=== PATIENT | male | born 1965 | race Caucasian/White ===

== ENCOUNTER 2020-01-04 11:08 | Outpatient (CLI) | payer MEDICARE, SELFPAY ==
[2020-01-04 12:01] LABS: Basophils Absolute Auto 0.1 K/mm3 (0.0-0.1); Basophils Percent Auto 0.7 % (0.2-1.2); Eosinophils Absolute Auto 0.2 K/mm3 (0-0.3); Hematocrit 43.2 % (42.0-52.0); Hemoglobin 14.8 g/dL (14.0-18.0); Immature Granulocyte Absolute 0.03 K/mm3 (0.00-0.031); Immature Granulocyte Percent A 0.4 % (0-0.5); Lymphocytes Absolute Auto 2.26 K/mm3 (0.9-3.2); Lymphocytes Percent Auto 27.8 % (18.3-44.2); Mean Corpuscular HGB Conc 34.3 g/dl (32-36); Mean Corpuscular Hemoglobin 29.6 pg (26-34); Mean Corpuscular Volume 86.4 fl (80-100); Mean Platelet Volume 10.7 fl (7.4-10.4); Monocytes Absolute Auto 0.5 K/mm3 (0.1-0.6); Monocytes Percent Auto 5.8 % (2.6-8.5); Neutrophils Absolute Auto 5.1 K/mm3 (1.3-6.7); Neutrophils Percent Auto 62.3 % (45.5-73.1); Platelet Count Result 230 k/mm3 (150-375); Red Cell Distribution Width 12.4 % (11.5-14.5); White Blood Count 8.1 K/mm3 (4.5-10.0)
[2020-01-04 12:40] LABS: Alanine Aminotransferase 34 U/L (4-50); Albumin Level 4.3 g/dL (3.5-5.1); Alkaline Phosphatase 132 U/L (38-126); Aspartate Amino Transferase 26 U/L (17-59); Bilirubin,Total 0.5 mg/dL (0.2-1.3); Blood Urea Nitrogen 17 mg/dL (9-20); Calcium 9.2 mg/dL (8.4-10.2); Carbon Dioxide 22 mmol/L (22-30); Chloride 102 mmol/L (98-107); Cholesterol 188 mg/dL (0-200); Estimated Glomerular Filt Rate > 60; Glucose 355 mg/dL (75-110); HDL Direct 33 mg/dL; Potassium 4.5 mmol/L (3.4-5.0); Sodium 137 mmol/L (137-145); Triglycerides 215 mg/dL (<150)
[2020-01-04 12:51] LABS: LDL Cholesterol Direct 107 mg/dL
[2020-01-04 13:10] LABS: Prostate Specific Antigen < 0.1 ng/mL (< OR = 4.0); Thyroid Stimulating Hormone 0.862 uIU/mL (0.465-4.680); Total Triiodothyronine (T3) 1.13 NG/ML (0.97-1.69)
[2020-01-04 13:49] LABS: Microalbumin Urine Random 9.5 mg/L (0-16.7)
[2020-01-04 13:50] LABS: Creatinine Urine 52.7 mg/dL
[2020-01-04 13:59] LABS: Free T4 Free Thyroxine 1.25 ng/mL (0.78-2.19); Vitamin D 25 Hydroxy 30.5 ng/mL
[2020-01-04 14:16] LABS: Hemoglobin A1C 11.3 % (<5.7)
== END 2020-01-04 11:09 | disposition home or self-care (01) ==
LOC: ANHLAB 11:22
PROVIDERS: PCP Family Medicine; Visit Provider Nurse Practitioner Family
DX: E78.2 Mixed hyperlipidemia (principal); E11.9 Type 2 diabetes mellitus without complications; I10 Essential (primary) hypertension; Z12.5 Encounter for screening for malignant neoplasm of prostate; E55.9 Vitamin D deficiency, unspecified; R80.9 Proteinuria, unspecified
CPT/HCPCS: 36415; 80053; 80061; 82043; 82306; 83036; 84153; 84439; 84443; 84480; 85025; G0103

== ENCOUNTER 2020-01-14 17:22 | Emergency (ER) | payer MEDICARE, SELFPAY ==
[2020-01-14 17:30] VITALS: BP 187/95; PULSE 74; RESP 18; TEMP 36.3; O2SAT 100
[2020-01-14 17:44] LABS: Glucose Point of Care 268 (65-105)
--- NOTE | 2020-01-14 17:44 | ED.URI ---
HPI - URI/Sore Throat General Chief Complaint: Upper Respiratory Infection Stated Complaint: Cough/chest congestion/tightness in chest History of Present Illness HPI Narrative: This a 54-year-old male comes in complaining of cough congestion chest pain with cough patient states he has nasal pressure states that he does not have any radiating pain no nausea no dizziness no diaphoresis patient is a diabetic patient has a past medical history of hypertension hyperlipidemia has had a heart attack x3 Related Data Home Medications Medication Instructions Recorded Confirmed Vitamin B-12 1,000 unit PO DAILY 01/14/20 01/14/20 aspirin [Aspir-81] 01/14/20 atorvastatin 20 mg PO DAILY 01/14/20 01/14/20 buspirone 5 mg PO TID 01/14/20 01/14/20 clopidogrel 75 mg PO DAILY 01/14/20 01/14/20 fluoxetine [Prozac] 20 mg PO DAILY 01/14/20 01/14/20 glimepiride 4 mg PO BID 01/14/20 01/14/20 insulin NPH and regular human SUBCUT 01/14/20 insulin glargine [Basaglar KwikPen unit SUBCUT 01/14/20 U-100 Insulin] isosorbide mononitrate 30 mg PO DAILY 01/14/20 01/14/20 lisinopril 20 mg PO DAILY 01/14/20 01/14/20 metformin 1,000 mg PO BID 01/14/20 01/14/20 metoprolol tartrate 50 mg PO Q12H 01/14/20 01/14/20 nitroglycerin 1 inch [place] BID 01/14/20 01/14/20 ropinirole 0.5 mg PO BID 01/14/20 01/14/20 Allergies Allergy/AdvReac Type Severity Reaction Status Date / Time Penicillins Allergy Hives Verified 01/14/20 17:42 acetaminophen [From Percocet] AdvReac Sweating Verified 01/14/20 17:42 oxycodone [From Percocet] AdvReac Sweating Verified 01/14/20 17:42 pentazocine [From Talwin] AdvReac Sweating Verified 01/14/20 17:42 propoxyphene AdvReac Sweating Verified 01/14/20 17:43 [From Darvocet-N] Review of Systems Review of Systems: Narrative: CONSTITUTIONAL: Reports fever, chills, or sweats. EYES: Denies visual changes, redness, or discharge. ENT: Positive rhinorrhea, congestion, sore throat, or otalgia. CARDIOVASCULAR:Denies chest pain, palpitations, or edema. RESPIRATORY: report cough or dyspnea. GASTROINTESTINAL: Denies abdominal pain, nausea, vomiting, or diarrhea. GENITOURINARY: Denies dysuria or hematuria. SKIN:[Denies rash or itching. MUSCULOSKELETAL:Denies back pain, joint pain, or myalgia. NEUROLOGIC: Denies headache, numbness, or weakness. PSYCHIATRIC:Denies anxiety or depress PMFSH Comments At time as signature, I have reviewed and agree with nursing past medical, social, surgical and family history. Please see nursing chart for further information. There is no relevant family history pertinent to the presenting complaint. Exam Narrative: Exam Narrative: GENERAL:Well-appearing, well-nourished, and in no acute distress. HEAD:Normocephalic, atraumatic. EYES: PERRLA and EOMI. ENT: Nares clear, moderate clear rhinorrhea or epistaxis. Mucous membranes moist. NECK: Supple. CHEST: Clear to auscultation with sporadic intermittent wheeze noted on the right lobe. No respiratory distress. Persistent coughing HEART: Regular rate and rhythm. No murmur heard. Normal peripheral pulses. ABDOMEN: Soft, nontender, nondistended, normal active bowel sounds. EXTREMITIES: Normal range of motion. No edema. SKIN: Warm, dry, no rash. NEURO: No focal deficits. Alert and oriented x3. Course Vital Signs Vital signs: Vital Signs Temperature 97.4 F L 01/14/20 17:30 Pulse Rate 74 01/14/20 17:30 Respiratory Rate 18 01/14/20 17:30 Blood Pressure 187/95 H 01/14/20 17:30 Pulse Oximetry 100 01/14/20 17:30 Temperature 97.4 F L 01/14/20 17:30 Pulse Rate 74 01/14/20 17:30 Respiratory Rate 18 01/14/20 17:30 Blood Pressure 187/95 H 01/14/20 17:30 Pulse Oximetry 100 01/14/20 17:30 MDM - URI/Sore Throat Differential Diagnosis Differential diagnosis: Likely upper respiratory infection, viral infection, bronchitis, influenza and pharyngitis Lab Data Labs: Lab Results 01/14/20 Range/Units 17:41 POC Capillary Glucose Pending
--- NOTE | 2020-01-14 17:56 | PC.NURSE ---
1740 BEDSIDE GLUCOSE CHECK 268. WAREHOUSE TECHNICIAN ANTOINE AWARE.
== END 2020-01-14 18:22 | disposition home or self-care (01) ==
PROVIDERS: Emergency Provider Nurse Practitioner Family; PCP Family Medicine
DX: B34.9 Viral infection, unspecified (principal); J40 Bronchitis, not specified as acute or chronic; J01.90 Acute sinusitis, unspecified; E11.9 Type 2 diabetes mellitus without complications; I10 Essential (primary) hypertension; E78.5 Hyperlipidemia, unspecified; I25.2 Old myocardial infarction; I25.10 Atherosclerotic heart disease of native coronary artery without angina pectoris; Z95.1 Presence of aortocoronary bypass graft; Z96.651 Presence of right artificial knee joint; F41.9 Anxiety disorder, unspecified
CPT/HCPCS: 82948; 87804; 99213; G0463

== ENCOUNTER 2020-02-27 16:41 | Emergency (ER) | payer MEDICARE, SELFPAY ==
--- NOTE | 2020-02-27 16:49 | ED.DENTAL ---
HPI - Dental/Oral General Chief complaint: Dental/Oral Stated complaint: toothache Time Seen by Provider: 02/27/20 16:49 Source: patient and RN notes reviewed History of Present Illness HPI Narrative: Patient is a 54-year-old male that presents the urgent care with complaints of lower left dental pain. Patient states that it started 2 days ago and he has taken Aleve and Lortab for the pain. Patient states that he typically get some pain medicine from the dentist whenever he has this issue. Patient states that his PCP or his dentist would not see him due to the coronavirus. Patient states that he was supposed to see his dentist today but they canceled on him 2 weeks ago. Patient states he will follow-up with his dentist as soon as they open. No other acute complaints. Denies fever, chills, nausea, vomiting, bad taste in the mouth. No acute distress noted. Patient read the plan of care. Related Data Home Medications Medication Instructions Recorded Confirmed Vitamin B-12 1,000 unit PO DAILY 01/14/20 01/14/20 aspirin [Aspir-81] 81 mg PO DAILY 01/14/20 02/27/20 atorvastatin 20 mg PO DAILY 01/14/20 02/27/20 buspirone 5 mg PO TID 01/14/20 02/27/20 clopidogrel 75 mg PO DAILY 01/14/20 02/27/20 fluoxetine [Prozac] 20 mg PO DAILY 01/14/20 01/14/20 glimepiride 4 mg PO BID 01/14/20 01/14/20 isosorbide mononitrate 30 mg PO DAILY 01/14/20 01/14/20 lisinopril 20 mg PO DAILY 01/14/20 01/14/20 metformin 1,000 mg PO BID 01/14/20 01/14/20 metoprolol tartrate 50 mg PO Q12H 01/14/20 01/14/20 nitroglycerin 1 inch [place] BID 01/14/20 01/14/20 ropinirole 0.5 mg PO BID 01/14/20 01/14/20 Allergies Allergy/AdvReac Type Severity Reaction Status Date / Time Penicillins Allergy Hives Verified 02/27/20 16:53 acetaminophen [From Percocet] AdvReac Sweating Verified 02/27/20 16:53 oxycodone [From Percocet] AdvReac Sweating Verified 02/27/20 16:53 pentazocine [From Talwin] AdvReac Sweating Verified 02/27/20 16:53 propoxyphene AdvReac Sweating Verified 02/27/20 16:53 [From Darvocet-N] Review of Systems Review of Systems: Narrative: CONSTITUTIONAL: Denies fever, chills, or sweats. EYES: Denies visual changes, redness, or discharge. ENT: Denies rhinorrhea, congestion, sore throat, or otalgia. Reports of the lower left dental pain CARDIOVASCULAR: Denies chest pain, palpitations, or edema. RESPIRATORY: Denies cough or dyspnea. GASTROINTESTINAL: Denies abdominal pain, nausea, vomiting, or diarrhea. GENITOURINARY: Denies dysuria or hematuria. SKIN: Denies rash or itching. MUSCULOSKELETAL: Denies back pain, joint pain, or myalgia. NEUROLOGIC: Denies headache, numbness, or weakness. All other systems reviewed are negative, except as documented in HPI. PMFSH Comments At the time of my signature, I reviewed and agree with the nursing past medical, surgical, social, and family history. There is no relevant family history pertinent to the patient complaint. Exam Narrative: Exam Narrative: GENERAL: This is a well-nourished, well-developed patient, in no apparent distress. HEAD: normocephalic, atraumatic. EYES: PERRL. Sclera clear/white. Vision is grossly intact. EARS: External ears normal NOSE: External nose normal with no obvious nasal discharge THROAT: Mucous membranes moist, posterior pharynx clear. Large dental carry with avulsion to the anterior buccal cusp of the lower left second molar, tooth #18 NECK: Neck supple CARDIOVASCULAR: Regular rate and rhythm without murmurs, gallops, or rubs. RESPIRATORY: Clear to auscultation. Breath sounds equal bilaterally. No wheezes, rales, or rhonchi. SKIN: warm, intact with no suspicious lesions or rash, good texture and turgor. NEURO: awake, alert, and oriented to person, place and time. There were no obvious focal neurologic abnormalities. EXTREMITIES: No clubbing, cyanosis, or edema. Course Vital Signs Vital signs: Vital Signs Temperature 98.1 F 02/27/20 16:50 Pulse Rate 73 02/27/20 16:50 Respira
[2020-02-27 16:50] VITALS: BP 123/86; PULSE 73; RESP 20; TEMP 36.7; O2SAT 99
== END 2020-02-27 17:00 | disposition home or self-care (01) ==
PROVIDERS: Emergency Provider Nurse Practitioner Family; PCP Family Medicine
DX: K02.9 Dental caries, unspecified (principal); K04.7 Periapical abscess without sinus; E11.42 Type 2 diabetes mellitus with diabetic polyneuropathy; Z96.651 Presence of right artificial knee joint; I10 Essential (primary) hypertension; I25.2 Old myocardial infarction; Z95.1 Presence of aortocoronary bypass graft; Z79.82 Long term (current) use of aspirin; Z79.84 Long term (current) use of oral hypoglycemic drugs
CPT/HCPCS: 99213; G0463

== ENCOUNTER 2020-03-19 11:00 | Outpatient (CLI) | payer MEDICARE, SELFPAY ==
--- NOTE | ~2020-03-19 | XR_ITS ---
XR hand LT min 3V DATE: 03/19/2020 11:31 INDICATION: Fall 7 days ago. Second metacarpal pain TECHNIQUE: 3 views COMPARISON: None FINDINGS: No apparent recent fracture or dislocation is evident. If there is concern for subtle fract ure, consider CT evaluation. 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 IMPRESSION: No recent fracture or dislocation is evident Reviewed, dictated and finalized at location A.
== END 2020-03-19 11:01 | disposition home or self-care (01) ==
PROVIDERS: Visit Provider Family Medicine
DX: M79.642 Pain in left hand (principal)
CPT/HCPCS: 73130

== ENCOUNTER 2020-08-26 00:57 | Outpatient (CLI) | payer MEDICARE, SELFPAY ==
[2020-08-26 16:30] LABS: SARS-CoV-2 RNA PCR Negative
== END 2020-08-26 00:58 | disposition home or self-care (01) ==
LOC: ANHCOVIDDT 00:58
PROVIDERS: Visit Provider Internal Medicine Critical Care Medicine
DX: Z01.812 Encounter for preprocedural laboratory examination (principal); Z20.828 Contact with and (suspected) exposure to other viral communicable diseases
CPT/HCPCS: 87635; C9803; U0003

== ENCOUNTER 2020-08-27 11:15 | Outpatient (CLI) | payer MEDICARE, SELFPAY ==
[2020-08-27 12:01] LABS: Basophils Absolute Auto 0.1 K/mm3 (0.0-0.1); Basophils Percent Auto 0.8 % (0.2-1.2); Eosinophils Absolute Auto 0.2 K/mm3 (0-0.3); Eosinophils Percent Auto 2.2 % (0-4.4); Hematocrit 46.3 % (42.0-52.0); Hemoglobin 15.4 g/dL (14.0-18.0); Immature Granulocyte Absolute 0.03 K/mm3 (0.00-0.031); Immature Granulocyte Percent A 0.3 % (0-0.5); Lymphocytes Absolute Auto 2.11 K/mm3 (0.9-3.2); Lymphocytes Percent Auto 23.3 % (18.3-44.2); Mean Corpuscular HGB Conc 33.3 g/dl (32-36); Mean Corpuscular Hemoglobin 30.3 pg (26-34); Mean Corpuscular Volume 91.1 fl (80-100); Mean Platelet Volume 10.5 fl (7.4-10.4); Monocytes Absolute Auto 0.5 K/mm3 (0.1-0.6); Monocytes Percent Auto 5.8 % (2.6-8.5); Neutrophils Absolute Auto 6.1 K/mm3 (1.3-6.7); Neutrophils Percent Auto 67.6 % (45.5-73.1); Platelet Count Result 240 k/mm3 (150-375); Red Blood Count 5.08 M/mm3 (4.6-6.20); Red Cell Distribution Width 12.1 % (11.5-14.5); White Blood Count 9.1 K/mm3 (4.5-10.0)
[2020-08-27 12:12] LABS: Alanine Aminotransferase 31 U/L (4-50); Albumin Level 4.6 g/dL (3.5-5.1); Alkaline Phosphatase 122 U/L (38-126); Amylase 74 U/L (30-110); Anion Gap 11 mmol/L (8-16); Aspartate Amino Transferase 23 U/L (17-59); Bilirubin,Total 0.4 mg/dL (0.2-1.3); Blood Urea Nitrogen 20 mg/dL (9-20); Calcium 10.2 mg/dL (8.4-10.2); Carbon Dioxide 30 mmol/L (22-30); Chloride 100 mmol/L (98-107); Estimated Glomerular Filt Rate > 60; Glucose 341 mg/dL (75-110); Lipase 99 U/L (23-300); Potassium 5.1 mmol/L (3.4-5.0); Sodium 141 mmol/L (137-145)
== END 2020-08-27 11:16 | disposition home or self-care (01) ==
PROVIDERS: Visit Provider Nurse Practitioner
DX: R10.9 Unspecified abdominal pain (principal)
CPT/HCPCS: 36415; 80053; 82150; 83690; 85025

== ENCOUNTER 2020-08-28 07:12 | Outpatient (CLI) | payer MEDICARE, SELFPAY ==
--- NOTE | 2020-09-30 11:58 | WPDSLEEPSTUD ---
Sleep Study Date of Study: 08/28/20 Ordering Provider: Reagan Reagan MD Interpreting Physician: Rebecca Lam MD Sleep Study Type: Polysomnogram Height: 1.85 m Weight: 131.995 kg Body Mass Index: 38.4 Neck Circumference: 48.26 cm [place]: 5 Reason for Sleep Study Tired all the time Sleep History Deangelo Monahan is a 54 yo man with difficulty falling asleep and staying asleep. He wakes up throughout the night include including the gse mechanic hours. There is no family history of sleep issues. He occasionally snores. He does not awaken from sleep feeling short of breath or having heartburn, belching or coughing. He frequently has trouble sleeping with a cold. He does not gasp for breath at night, has not been told by others that he has breathing problems at night, does not sweat excessively at night or notices his heart pounding or beating irregularly at night. He frequently falls asleep during the day. He never falls asleep involuntarily. He occasionally falls asleep while driving. He never falls asleep during physical effort. He does not have loss of muscle tone was strong emotion. He occasionally has daytime difficulties due to excessive sleepiness. He does not feel paralyzed on waking or falling asleep and does not have vivid dreamlike scenes upon awakening or falling asleep. He is not afraid to go to sleep. he rarely has nightmares. He frequently remembers his dreams and frequently has racing thoughts. He occasionally feels sad, depressed and frequently feels anxious. He frequently has muscular tension, notices parts of his body jerking and he frequently kicks at night. He constantly has crawling and aching feelings in his legs at night. He does not have morning jaw pain and does not grind his teeth during sleep. He frequently is bothered by pain during the day and is awakened by pain at night. He occasionally wakes up feeling stiff in the morning, rarely with sore or achy muscles. He occasionally wakes up with pain in the neck and spine. Normal bedtime is 10 or 11:00 p.m. taking 30 minutes to fall asleep, typically waking 3-4 times staying awake 15-20 minutes. While awake he will try to reposition and go to sleep again. He wakes the morning between 8 and 9:00 a.m.. We can schedule shows that he goes to bed an hour later. He does take naps. A short nap is not refreshing. Most of the time he feels good in the morning. Habits: He drinks about a gallon of caffeinated beverages a day. No alcohol. There is a prior history of smoking, stopped 31 years ago. [facility] Past Medical History Medical History (Updated 09/30/20 @ 12:57 by Rebecca Lam MD) Arthritis Coronary artery disease Stent placed EMRE prox LAD02/15/2018 outside hospital Diabetes mellitus Hyperlipidemia Hypertension Prostate cancer Surgical History Surgical History (Updated 09/30/20 @ 12:45 by Rebecca Lam MD) History of back surgery History of carpal tunnel surgery History of cholecystectomy History of foot surgery bilateral History of right knee joint replacement History of rotator cuff surgery Social History Social History (Updated 09/30/20 @ 12:48 by Rebecca Lam MD) Smoking status: Former smoker Alcohol intake: never Substance use: never Medications Home Medications Medication Instructions Recorded Confirmed Type Vitamin B-12 1,000 unit PO DAILY 01/14/20 02/27/20 History albuterol sulfate [Ventolin HFA] 2 puff INHALATION QID PRN #8 gm 01/14/20 02/27/20 Rx aspirin [Aspir-81] 81 mg PO DAILY 01/14/20 02/27/20 History atorvastatin 20 mg PO DAILY 01/14/20 02/27/20 History buspirone 5 mg PO TID 01/14/20 02/27/20 History clopidogrel 75 mg PO DAILY 01/14/20 02/27/20 History fluoxetine [Prozac] 20 mg PO DAILY 01/14/20 02/27/20 History glimepiride 4 mg PO BID 01/14/20 02/27/20 History isosorbide mononitrate 30 mg PO DAILY 01/14/20 02/27/20 History lisinopril 20 mg PO DAILY 01/14/20 02/27/20 History metformin 1,000 mg PO
[2020-09-30 12:41] VITALS: BMI 38.4
== END 2020-08-28 07:13 | disposition home or self-care (01) ==
LOC: ANHCSM 07:12
PROVIDERS: Visit Provider Internal Medicine Cardiovascular Disease
DX: G47.33 Obstructive sleep apnea (adult) (pediatric) (principal)
CPT/HCPCS: 95810

== ENCOUNTER 2020-09-24 07:56 | Emergency (ER) | payer MEDICARE, SELFPAY ==
--- NOTE | ~2020-09-24 | XR_ITS ---
EXAMINATION: XR shoulder RT min 2V EXAM DATE: 09/24/2020 08:11 INDICATION: Fall, superior right shoulder pain with limited range of motion. History of rotator cuff tear. TECHNIQUE: The following right shoulder projections obtained: frontal projection with internal rotati on, frontal projection with external rotation, Grashey, and scapular Y view (4+ views). There is no prior study for comparison. FINDINGS: Wide appearing right acromioclavicular joint, could be postoperative or indicate ligame ntous injury or acromioclavicular joint disruption. Clinical correlation. There are no acute fractures identified. There is mild glenohumeral primary osteoarthritis. No radio paque foreign bodies identified. IMPRESSION: 1. Wide right acromioclavicular joint, acute versus chronic finding. 2. Mild glenohumeral osteoarthritis. Reviewed, dictated and finalized at location B. TOCK REPAIRER
[2020-09-24 08:03] VITALS: BP 173/97; PULSE 80; RESP 18; TEMP 36.6; O2SAT 96
--- NOTE | 2020-09-24 08:29 | ED.FALL ---
HPI - Fall General Chief Complaint: Fall Stated Complaint: right shoulder injury Time Seen by Provider: 09/24/20 08:01 Source: patient Mode of arrival: ambulatory Limitations: no limitations History of Present Illness HPI Narrative: 54 yr old with a H/O HTN , DM , 3 shoulder surgeries here with a complaints of right shoulder pain since last night , He states he fell last night wile he was taking his dog out. He denies any other injuries MD complaint: fall Onset (ago): day(s) (1) Fall from: standing Fall witnessed: no Place fall occurred: home Loss of consciousness: none Location of injury - extremities: Right: shoulder Severity: moderate Quality: dull Associated symptoms (after fall): denies Related Data Home Medications Medication Instructions Recorded Confirmed Vitamin B-12 1,000 unit PO DAILY 01/14/20 02/27/20 aspirin [Aspir-81] 81 mg PO DAILY 01/14/20 02/27/20 atorvastatin 20 mg PO DAILY 01/14/20 02/27/20 buspirone 5 mg PO TID 01/14/20 02/27/20 clopidogrel 75 mg PO DAILY 01/14/20 02/27/20 fluoxetine [Prozac] 20 mg PO DAILY 01/14/20 02/27/20 glimepiride 4 mg PO BID 01/14/20 02/27/20 isosorbide mononitrate 30 mg PO DAILY 01/14/20 02/27/20 lisinopril 20 mg PO DAILY 01/14/20 02/27/20 metformin 1,000 mg PO BID 01/14/20 02/27/20 metoprolol tartrate 50 mg PO Q12H 01/14/20 02/27/20 nitroglycerin 1 inch [place] BID 01/14/20 02/27/20 ropinirole 0.5 mg PO BID 01/14/20 02/27/20 Allergies Allergy/AdvReac Type Severity Reaction Status Date / Time Penicillins Allergy Hives Verified 09/24/20 08:06 acetaminophen [From Percocet] AdvReac Sweating Verified 09/24/20 08:06 oxycodone [From Percocet] AdvReac Sweating Verified 09/24/20 08:06 pentazocine [From Talwin] AdvReac Sweating Verified 09/24/20 08:06 propoxyphene AdvReac Sweating Verified 09/24/20 08:06 [From Luz-Mike] Review of Systems Review of Systems: All systems reviewed & are unremarkable except as noted in HPI and below Constitutional: Constitutional: Reports no additional constitutional complaints Eyes: Eyes: Reports no additional eye complaints ENT: Reports system reviewed and no additional complaints, except as documented Cardiovascular: Cardiovascular: Reports no additional cardiovascular complaints Respiratory: Respiratory: Reports no additional respiratory complaints Gastrointestinal: Gastrointestinal: Reports no additional gastrointestinal complaints Neurologic: Reports system reviewed and no additional complaints, except as documented Endocrine: Endocrine: Reports no additional endocrine complaints Exam Const: General: no acute distress Orientation/consciousness: patient oriented x3 HENMT: Head: normal to inspection Eyes: Conjunctivae: conjunctivae normal Neck: Neck: no lymphadenopathy Resp: Effort & Inspection: normal respiratory effort Skin: General skin exam: normal color Neuro: General: patient oriented x3 Extrem: General: normal to inspection Other: Pain in the right shoulder, no deformity Course Course Emergency Course: informed pt about his xray , advised him to follow with his PMD or Ortho Vital Signs Vital signs: Vital Signs Temperature 36.6 C 09/24/20 08:03 Pulse Rate 80 09/24/20 08:03 Respiratory Rate 18 09/24/20 08:03 Blood Pressure 173/97 H 09/24/20 08:03 Pulse Oximetry 96 09/24/20 08:03 Temperature 36.6 C 09/24/20 08:03 Pulse Rate 80 09/24/20 08:03 Respiratory Rate 18 09/24/20 08:03 Blood Pressure 173/97 H 09/24/20 08:03 Pulse Oximetry 96 09/24/20 08:03 MDM - Fall Imaging Data Radiologist's impression: ITS Impressions Shoulder X-Ray 09/24/20 08:15 IMPRESSION: 1. Wide right acromioclavicular joint, acute versus chronic finding. 2. Mild glenohumeral osteoarthritis. Discharge Plan Discharge Clinical Impression: Contusion of right shoulder Qualifiers: Encounter type: initial encounter Qualified Code(s): S40.011A - Contusion of right shoulder
[2020-09-24] MEDS: traMADol HCL (*CRX) 50 MG TABLET PO (08:34)
== END 2020-09-24 08:49 | disposition home or self-care (01) ==
PROVIDERS: Emergency Provider Family Medicine; PCP Family Medicine
DX: S40.011A Contusion of right shoulder, initial encounter (principal); W19.XXXA Unspecified fall, initial encounter
CPT/HCPCS: 73030; 99283; A4565; A9270

== ENCOUNTER 2020-10-17 13:32 | Outpatient (CLI) | payer MEDICARE, SELFPAY ==
--- NOTE | ~2020-10-17 | CT_ITS ---
EXAMINATION: CT abdomen w con DATE: 10/17/2020 14:04 INDICATION: Abdomen pain TECHNIQUE: Computed tomography (CT) of the abdomen was performed with 100 cc Omnipaque 350 intravenou s contrast. The dose-length product was 1137.04 mGy-cm. COMPARISON: None. FINDINGS: Heart size normal. No significant pleural or pericardial effusion. Lung bases unremarkable. No significant vascular abnormality. No lymphadenopathy. Small fat-containing supraumbilical and umbilical hernias. Nonobstructive bowel gas pattern. There ar e cholecystectomy clips. Fatty infiltration of the liver. The spleen, pancreas, adrenal glands and kidneys are unremarkable. A dvanced multilevel lumbar spondylosis of the facet joints. IMPRESSION: 1. No acute abdominal abnormality. 2: Fat-containing supraumbilical and ventral hernias. Reviewed, dictated and finalized at location A. NCIAL SERVICES TECHNICIAN
[2020-10-17 13:59] LABS: Estimated Glomerular Filt Rate > 60
== END 2020-10-17 13:33 | disposition home or self-care (01) ==
LOC: ANHIMG 13:39
PROVIDERS: PCP Family Medicine; Visit Provider Nurse Practitioner
DX: K44.9 Diaphragmatic hernia without obstruction or gangrene (principal); K43.9 Ventral hernia without obstruction or gangrene
CPT/HCPCS: 74160; Q9967

== ENCOUNTER 2020-10-28 06:39 | Emergency (ER) | payer MEDICARE, SELFPAY ==
--- NOTE | ~2020-10-28 | XR_ITS ---
EXAMINATION: XR foot RT 2V DATE: 10/28/2020 08:01 INDICATION: Plantar callus TECHNIQUE: Dorsoplantar and lateral views of the right foot were obtained. COMPARISON: None. FINDINGS: Postoperative changes at the partial amputation of the right fifth metatarsal. There is a corticated lucent defect extending across the base of the fourth metatarsal which could represent an additional osteotomy or chronic nonunited fracture. No acute fracture. Polyarticular osteoarthritis with mild no nuniform joint space narrowing at multiple joints in the mid and forefoot. Nonspecific increased scle rosis at the base of the second-fourth metatarsals. No cortical erosions. Small to moderate sized Ach illes and plantar calcaneal spurs. IMPRESSION: 1. At least partial amputation of the fifth metatarsal with chronic appearing lucent defect extending across the base of the fourth metatarsal which could represent an additional osteotomy or chronic no nunited fracture. 2. Increased sclerosis at the base of the second-fourth metatarsals which could represent stress reac tion, Charcot joint or chronic osteomyelitis. No cortical erosions to more specifically suggest osteo myelitis. Reviewed, dictated and finalized at location A. OR SUPPORT ENGINEER IMPRESSION: 1. At least partial amputation of the fifth metatarsal with chronic appearing l ucent defect extending across the base of the fourth metatarsal which could rep resent an additional osteotomy or chronic nonunited fracture. 2. Increased sclerosis at the base of the second-fourth metatarsals which could represent stress reaction, Charcot joint or chronic osteomyelitis. No cortical erosions to more specifically suggest osteomyelitis.
[2020-10-28 06:42] VITALS: BP 162/99; PULSE 81; RESP 18; TEMP 36.2; O2SAT 99
--- NOTE | 2020-10-28 07:47 | ED.GENADULT ---
HPI - General Adult General Chief complaint: Wound/Laceration Stated complaint: ulcers on both feet Time Seen by Provider: 10/28/20 07:18 Source: patient and family Mode of arrival: ambulatory Limitations: no limitations History of Present Illness HPI narrative: 54 years old white male complaining of sores at the bottom of the feet bilaterally months/years. Patient reports is getting worse mainly on the right foot Patient is diabetic, Patient denies any fever, chills, nausea, vomiting, any discharge. Related Data Home Medications Medication Instructions Recorded Confirmed Vitamin B-12 1,000 unit PO DAILY 01/14/20 02/27/20 aspirin [Aspir-81] 81 mg PO DAILY 01/14/20 02/27/20 atorvastatin 20 mg PO DAILY 01/14/20 02/27/20 buspirone 5 mg PO TID 01/14/20 02/27/20 clopidogrel 75 mg PO DAILY 01/14/20 02/27/20 fluoxetine [Prozac] 20 mg PO DAILY 01/14/20 02/27/20 glimepiride 4 mg PO BID 01/14/20 02/27/20 isosorbide mononitrate 30 mg PO DAILY 01/14/20 02/27/20 lisinopril 20 mg PO DAILY 01/14/20 02/27/20 metformin 1,000 mg PO BID 01/14/20 02/27/20 metoprolol tartrate 50 mg PO Q12H 01/14/20 02/27/[address] BID 01/14/20 02/27/20 ropinirole 0.5 mg PO BID 01/14/20 02/27/20 dulaglutide [Trulicity] mg SUBCUT 10/28/20 Allergies Allergy/AdvReac Type Severity Reaction Status Date / Time Penicillins Allergy Hives Verified 10/28/20 06:46 acetaminophen [From Percocet] AdvReac Sweating Verified 10/28/20 06:46 oxycodone [From Percocet] AdvReac Sweating Verified 10/28/20 06:46 pentazocine [From Talwin] AdvReac Sweating Verified 10/28/20 06:46 propoxyphene AdvReac Sweating Verified 10/28/20 06:46 [From Luz-N] Review of Systems Review of Systems: Narrative: CONSTITUTIONAL: Denies fever, chills, or sweats. EYES: Denies visual changes, redness, or discharge. ENT: Denies rhinorrhea, congestion, sore throat, or otalgia. CARDIOVASCULAR: Denies chest pain, palpitations, or edema. RESPIRATORY: Denies cough or dyspnea. GASTROINTESTINAL: Denies abdominal pain, nausea, vomiting, or diarrhea. GENITOURINARY: Denies dysuria or hematuria. SKIN: Denies rash or itching. MUSCULOSKELETAL: Denies back pain, joint pain, or myalgia. NEUROLOGIC: Denies headache, numbness, or weakness. PSYCHIATRIC: Denies anxiety or depression. [facility] Past Medical History Medical History Arthritis Coronary artery disease Stent placed EMRE prox LAD02/15/2018 outside hospital Diabetes mellitus Hyperlipidemia Hypertension Prostate cancer Surgical History Surgical History History of back surgery History of carpal tunnel surgery History of cholecystectomy History of foot surgery bilateral History of right knee joint replacement History of rotator cuff surgery Social History Social History Smoking status: Former smoker Alcohol intake: never Substance use: never Exam Narrative: Exam Narrative: General appearance: Well-developed, well-nourished Skin: Normal color Head: Normocephalic, nontraumatic Eyes: Clear conjunctiva ENT: Oropharynx normal, ears normal, nose normal Neck: Supple, nontender Chest and respiratory: Airway patent, no respiratory distress, no accessory muscle use Heart: Regular rate/rhythm Abdomen: Soft, nontender, no organomegaly, quiet bowel sounds Vascular: Normal peripheral pulses, normal capillary refill. Musculoskeletal: Normal range of motion, nontender back callus at the forefoot plantar side bilaterally, no ulceration, no swelling, no erythema, no discharge, Neurologic: Alert and oriented ?3, CUFF SLITTER is normal as tested, no gross motor deficit
[2020-10-28 08:00] LABS: Basophils Absolute Auto 0.1 K/mm3 (0.0-0.1); Basophils Percent Auto 0.9 % (0.2-1.2); Eosinophils Absolute Auto 0.3 K/mm3 (0-0.3); Eosinophils Percent Auto 2.8 % (0-4.4); Hematocrit 44.1 % (42.0-52.0); Hemoglobin 14.7 g/dL (14.0-18.0); Immature Granulocyte Absolute 0.04 K/mm3 (0.00-0.031); Immature Granulocyte Percent A 0.4 % (0-0.5); Lymphocytes Absolute Auto 2.81 K/mm3 (0.9-3.2); Lymphocytes Percent Auto 31.5 % (18.3-44.2); Mean Corpuscular HGB Conc 33.3 g/dl (32-36); Mean Corpuscular Hemoglobin 29.3 pg (26-34); Mean Platelet Volume 10.7 fl (7.4-10.4); Monocytes Absolute Auto 0.6 K/mm3 (0.1-0.6); Monocytes Percent Auto 6.6 % (2.6-8.5); Neutrophils Absolute Auto 5.2 K/mm3 (1.3-6.7); Neutrophils Percent Auto 57.8 % (45.5-73.1); Platelet Count Result 256 k/mm3 (150-375); Red Blood Count 5.01 M/mm3 (4.6-6.20); Red Cell Distribution Width 12.7 % (11.5-14.5); White Blood Count 8.9 K/mm3 (4.5-10.0)
[2020-10-28 08:17] LABS: Alanine Aminotransferase 30 U/L (4-50); Alkaline Phosphatase 104 U/L (38-126); Anion Gap 11 mmol/L (8-16); Aspartate Amino Transferase 23 U/L (17-59); Bilirubin,Total 0.4 mg/dL (0.2-1.3); Blood Urea Nitrogen 14 mg/dL (9-20); Calcium 9.5 mg/dL (8.4-10.2); Carbon Dioxide 24 mmol/L (22-30); Chloride 105 mmol/L (98-107); Estimated CRCL calculation 132 ml/min; Estimated Glomerular Filt Rate > 60; Glucose 272 mg/dL (75-110); Sodium 140 mmol/L (137-145)
[2020-10-28 08:50] VITALS: BP 136/79; PULSE 78; RESP 16; O2SAT 100
== END 2020-10-28 08:50 | disposition home or self-care (01) ==
PROVIDERS: Emergency Provider Emergency Medicine; PCP Family Medicine
DX: L84 Corns and callosities (principal); M19.90 Unspecified osteoarthritis, unspecified site; E11.9 Type 2 diabetes mellitus without complications; I25.10 Atherosclerotic heart disease of native coronary artery without angina pectoris; Z95.5 Presence of coronary angioplasty implant and graft; E78.5 Hyperlipidemia, unspecified; I10 Essential (primary) hypertension; Z79.84 Long term (current) use of oral hypoglycemic drugs; Z79.82 Long term (current) use of aspirin; Z85.46 Personal history of malignant neoplasm of prostate; Z87.891 Personal history of nicotine dependence
CPT/HCPCS: 36415; 73620; 80053; 85025; 99283

== ENCOUNTER 2021-02-10 08:41 | Inpatient (IN) | payer MEDICARE, MEDICAID, SELFPAY ==
--- NOTE | ~2021-02-10 | XR_ITS ---
EXAMINATION: XR foot RT min 3V DATE: 02/10/2021 09:19 INDICATION: Right foot diabetic ulcer. Pain and swelling. TECHNIQUE: 4 views of right foot were obtained. COMPARISON: Right foot radiographs 10/28/2020 FINDINGS: Forefoot varus is noted. No acute fracture. There is absence of the distal 3/4 of fifth met atarsal. Again seen is a transverse lucent line in base of fourth metatarsal with hypertrophy and scl erosis of bone around the line, consistent with a healing fracture. There is mild osteoarthritis of s ome of the midfoot joints and interphalangeal joints. There is moderate to severe osteoarthritis of s econd-fifth tarsometatarsal joints. There are enthesophytes at the posterior and plantar aspects of c alcaneal tuberosity. IMPRESSION: 1. No evidence of osteomyelitis. 2. Healing fracture of base of fourth metatarsal. 3. Polyarticular osteoarthritis, worst at the Lisfranc joint. Reviewed, dictated and finalized at location A.
--- NOTE | ~2021-02-10 | XR_ITS ---
EXAMINATION: XR surgery orthopedic EXAM DATE: 02/14/2021 13:56 INDICATION: Right 4th metatarsal incision and drainage. TECHNIQUE: Fluoroscopy used during right foot surgery performed by Dr. Lio Pacheco JR MD. Rad iologist was not present for the imaging or procedure. Total fluoroscopic time of 17 seconds. The D AP for this procedure was 1.9 cGycm2. A total of 1 images obtained for the exam. FINDINGS: Frontal image demonstrates soft tissue defect overlying or underlying the right 4th MTP kenyon int. Fracture or osteotomy of the 4th metatarsal shaft at its distal quarter. No osseous erosion iden tified. There is old 5th metatarsal resection. Correlate with procedure note. IMPRESSION: Fluoroscopy used during right foot orthopedic surgery. Reviewed, dictated and finalized at location A.
--- NOTE | ~2021-02-10 | MR_ITS ---
EXAMINATION: MR foot RT wo con DATE: 02/12/2021 11:28 INDICATION: Diabetic foot infection. TECHNIQUE: Magnetic resonance imaging (MRI) of the right foot was performed without intravenous contr ast. Sequences included sagittal T1-weighted FSE and STIR FSE, long-axis PD-weighted FS FSE and PD-we ighted FSE, and short-axis PD-weighted FS FSE and T1-weighted FSE. COMPARISON: Right foot radiographs 02/10/2021, 10/28/2020 FINDINGS: There is absence of the distal 3/4 of fifth metatarsal. There is an oblique extra-articular fracture of base of fourth metatarsal with nonunion. There is mild osteoarthritis of first metatarso phalangeal joint and many of the interphalangeal joints. There is mild to moderate osteoarthritis of many of the midfoot joints. There is severe osteoarthritis of second tarsometatarsal joint. There are fusions of the third and fourth metatarsophalangeal joints. There is increased T2-weighted signal in tensity in the soft tissues around fourth metatarsophalangeal joint with skin disruption plantar to t his area. There is mild subcortical bone marrow edema in head of fourth metatarsal, consistent with r eactive osteitis. There is no significant decreased T1-weighted signal intensity in the bone marrow t o suggest osteomyelitis. Lisfranc ligament is intact. There is moderate to severe fatty atrophy of al l of the musculature. There is increased T2-weighted signal intensity in some of the musculature, con sistent with subacute denervation. IMPRESSION: 1. Cellulitis around fourth metatarsophalangeal joint with reactive osteitis in head of fourth metata rsal. No specific evidence of osteomyelitis. 2. 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 3. Polyarticular osteoarthritis. Reviewed, dictated and finalized at location A. IMPRESSION: 1. Cellulitis around fourth metatarsophalangeal joint with reactive osteitis in head of fourth metatarsal. No specific evidence of osteomyelitis. 2. 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 3. Polyarticular osteoarthritis.
[2021-02-10 08:49] VITALS: BP 137/82; PULSE 90; RESP 19; TEMP 36.7; O2SAT 100
[2021-02-10] MEDS: SODIUM CHLORIDE 0.9% IV 1,000 ML 999 ML IV CONT (09:07)
--- NOTE | 2021-02-10 09:13 | ED.LOWEXIN ---
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 Patient also states that he had a fever last night 99 . Patient denies any injury to the area. Related Data Home Medications Medication Instructions Recorded Confirmed Vitamin B-12 1,000 unit PO DAILY 01/14/20 01/27/21 aspirin [Aspir-81] 81 mg PO DAILY 01/14/20 01/27/21 atorvastatin 20 mg PO DAILY 01/14/20 01/27/21 buspirone 5 mg PO TID 01/14/20 01/27/21 clopidogrel 75 mg PO DAILY 01/14/20 01/27/21 fluoxetine [Prozac] 20 mg PO DAILY 01/14/20 01/27/21 glimepiride 4 mg PO BID 01/14/20 01/27/21 isosorbide mononitrate 30 mg PO DAILY 01/14/20 01/27/21 lisinopril 20 mg PO DAILY 01/14/20 01/27/21 metformin 1,000 mg PO BID 01/14/20 01/27/21 nitroglycerin 1 inch CO BID 01/14/20 01/27/21 ropinirole 0.5 mg PO BID 01/14/20 01/27/21 dulaglutide [Trulicity] mg SUBCUT 10/28/20 01/27/21 cyanocobalamin (vitamin B-12) 1,000 mcg PO DAILY 01/27/21 01/27/21 1,000 mcg tablet dulaglutide 3 mg/0.5 mL 3 mg SUBCUT WEEKLY 01/27/21 01/27/21 subcutaneous pen injector insulin aspar prot-insulin aspart 15 unit SUBCUT BID 01/27/21 01/27/21 100 unit/mL (70-30) subcutaneous pen insulin glargine 100 unit/mL (3 60 unit SUBCUT BID ml 01/27/21 01/27/21 mL) subcutaneous pen lisinopril 40 mg tablet 40 mg PO DAILY 01/27/21 01/27/21 nebivolol 2.5 mg tablet 2.5 mg PO DAILY 01/27/21 01/27/21 Allergies Allergy/AdvReac Type Severity Reaction Status Date / Time codeine Allergy Hives Verified 02/10/21 08:54 Penicillins Allergy Hives Verified 02/10/21 08:54 acetaminophen [From Percocet] AdvReac Sweating Verified 02/10/21 08:54 oxycodone [From Percocet] AdvReac Sweating Verified 02/10/21 08:54 pentazocine [From Talwin] AdvReac Sweating Verified 02/10/21 08:54 propoxyphene AdvReac Sweating Verified 02/10/21 08:54 [From Darvocet-N] Review of Systems Review of Systems: All systems reviewed & are unremarkable except as noted in HPI and below Constitutional: Constitutional: Denies body ache(s), Denies chills, Denies excessive sweating, Denies fatigue, Denies fever(s), Denies headache(s), Denies lethargy, Denies malaise, Denies weakness and Denies weight loss Eyes: Eyes: Denies blurry vision, Denies change in vision and Denies loss of vision ENT: Denies dizziness, Denies ear discharge, Denies headache(s), Denies lip swelling, Denies epistaxis, Denies nasal congestion, Denies neck pain, Denies throat swelling and Denies tongue swelling Cardiovascular: Cardiovascular: Denies chest pain, Denies chest pain at rest, Denies chest pain with activity, Denies diaphoresis, Denies rapid heart rate, Denies edema, Denies irregular heart rhythm, Denies lightheadedness, Denies palpitations, Denies dyspnea and Denies dyspnea on exertion Respiratory: Respiratory: Denies chest congestion, Denies cough, Denies hemoptysis, Denies dyspnea and Denies dyspnea on exertion Gastrointestinal: Gastrointestinal: Denies abdominal pain, Denies melena, Denies hematochezia, Denies diarrhea, Denies nausea, Denies vomiting and Denies hematemesis Musculoskeletal: Musculoskeletal: Denies abnormal gait, Denies deformity, Denies limited range of motion, Denies neck pain and Denies numbness Neurologic: Denies Abnormal speech present, Denies abnormal gait, Denies confusion, Denies dizziness, Denies headache(s), Denies focal weakness, Denies loss of vision, Denies numbness, Denies Other visual disturbances, Denies Sensory deficit (Neuro) and Denie
[2021-02-10 09:14] LABS: Basophils Percent Auto 0.3 % (0.2-1.2); Eosinophils Absolute Auto 0.2 K/mm3 (0-0.3); Eosinophils Percent Auto 1.3 % (0-4.4); Hematocrit 39.2 % (42.0-52.0); Hemoglobin 13.3 g/dL (14.0-18.0); Immature Granulocyte Absolute 0.09 K/mm3 (0.00-0.031); Immature Granulocyte Percent A 0.6 % (0-0.5); Lymphocytes Absolute Auto 1.83 K/mm3 (0.9-3.2); Lymphocytes Percent Auto 11.7 % (18.3-44.2); Mean Corpuscular HGB Conc 33.9 g/dl (32-36); Mean Corpuscular Hemoglobin 28.9 pg (26-34); Mean Corpuscular Volume 85.2 fl (80-100); Mean Platelet Volume 9.9 fl (7.4-10.4); Monocytes Absolute Auto 1.2 K/mm3 (0.1-0.6); Monocytes Percent Auto 7.5 % (2.6-8.5); Neutrophils Absolute Auto 12.3 K/mm3 (1.3-6.7); Neutrophils Percent Auto 78.6 % (45.5-73.1); Platelet Count Result 303 k/mm3 (150-375); Red Cell Distribution Width 12.5 % (11.5-14.5); White Blood Count 15.7 K/mm3 (4.5-10.0)
[2021-02-10 09:30] LABS: Lactic Acid Reflex 1.4 mmol/L (0.7-2.1)
[2021-02-10 09:31] LABS: Anion Gap 9 mmol/L (8-16); Blood Urea Nitrogen 35 mg/dL (9-20); Carbon Dioxide 23 mmol/L (22-30); Chloride 99 mmol/L (98-107); Estimated CRCL calculation 75 ml/min; Estimated Glomerular Filt Rate 53; Glucose 233 mg/dL (75-110); Potassium 4.2 mmol/L (3.4-5.0); Sodium 131 mmol/L (137-145)
[2021-02-10 10:33] VITALS: BP 133/80; PULSE 86; RESP 17; O2SAT 98
[2021-02-10 11:10] VITALS: BP 132/76; PULSE 89; RESP 18; O2SAT 99
--- NOTE | 2021-02-10 13:38 | ADMGEN ---
This patient, Deangelo Monahan, was admitted to 3 [facility] Surg Room 327-01 @ 8875. Patient/family oriented to hospital policies and general routines including ID bracelet, bed and alarms, visiting hours, pain management, procedures, bathroom and other care routines, personal items, smoking policy, room service/diet, and visiting hours. Information on how to activate the Rapid Response Team has been discussed. Patient/Family are encouraged to report perceived risks to care and to ask questions if they do not understand what they are told or what they should do.
--- NOTE | 2021-02-10 13:46 | PM.IMHP ---
H&P: HPI History of Present Illness Date/Time: 02/10/21 13:46 Chief Complaint: Right foot ulcer Narrative: This is a 55-year-old male with past medical history significant for type type 2 diabetes mellitus insulin dependent, peripheral diabetic neuropathy, bilateral diabetic foot disease, chronic bilateral ulcers of the foot, hypertension, restless legs, dyslipidemia, congestive heart failure, coronary artery disease. Patient presented to the emergency room after he failed outpatient treatment for right foot ulcer infested, he was sent from his doctor's office. Patient has had some general malaise, chills, discharge from ulcer according to is clear in color, also has had poor appetite, no shortness of breath no cough no sputum production, no nausea no vomiting no abdominal pain no diarrhea. Patient is allergic to penicillin, it states that in the past he has had osteomyelitis and required long-term antibiotic infusion and PICC line placement. Preliminary studies performed in emergency room are significant for a foot x-ray with no signs of osteomyelitis, but osteoarthritis, chemistry panel is significant for mild elevation of creatinine, CBC with mild leukocytosis, rest of the workup is unrevealing. Review of Systems Review of Systems: Narrative: Patient presented to the emergency room due to right foot ulcer drainage, chills, generalized malaise, decreased appetite. Constitutional: Comments: Has some chills Eyes: Comments: No vision changes ENT: Comments: No ear ache, no nasal congestion or discharge, no sore throat Cardiovascular: Comments: No chest pain, no palpitation, no PND, no orthopnea. Respiratory: Comments: No shortness of breath ,no cough, no sputum production. Gastrointestinal: Comments: Had some stomach upset, no abdominal pain. Musculoskeletal: Comments: Right foot ulcer with drainage Integumentary/Breasts: Comments: Right foot ulcer Neurologic: Comments: No sensorimotor deficit Endocrine: Comments: No heat or cold intolerance no polydipsia polyphagia polyuria Hematologic/Lymphatic: Comments: No lymphadenopathy PMFSH Past Medical History Medical History Arthritis Coronary artery disease Stent placed EMRE prox LAD02/15/2018 outside hospital Diabetes mellitus Hyperlipidemia Hypertension Prostate cancer Surgical History Surgical History History of back surgery History of carpal tunnel surgery History of cholecystectomy History of foot surgery bilateral History of right knee joint replacement History of rotator cuff surgery Family History Family History Father Heart attack Hypertension Mother Heart attack Diabetes mellitus Hyperchloremia Hypertension Sibling Hypertension Diabetes mellitus Social History Social History Social History: Smoked for 1 year in his 20's. Smoking status: Former smoker Alcohol intake: never Substance use: never Meds Home Medications and Allergies Home Medications Medication Instructions Recorded Confirmed Type aspirin [Aspir-81] 81 mg PO DAILY 01/14/20 01/27/21 History atorvastatin 20 mg PO DAILY 01/14/20 01/27/21 History buspirone 5 mg PO TID 01/14/20 01/27/21 History clopidogrel 75 mg PO DAILY 01/14/20 01/27/21 History fluoxetine [Prozac] 20 mg PO DAILY 01/14/20 01/27/21 History metformin 1,000 mg PO BID 01/14/20 01/27/21 History ropinirole 0.5 mg PO BID 01/14/20 01/27/21 History cyanocobalamin (vitamin B-12) 1,000 mcg PO DAILY 01/27/21 01/27/21 History 1,000 mcg tablet insulin aspar prot-insulin aspart 15 unit SUBCUT BID 01/27/21 01/27/21 History 100 unit/mL (70-30) subcutaneous pen insulin glargine 100 unit/mL (3 60 unit SUBCUT BID ml 01/27/21 01/27/21 History mL) subcutaneous pen lisinopril 40
[2021-02-10 13:57] VITALS: BMI 37.2
[2021-02-10 14:00] VITALS: BP 123/78; PULSE 85; RESP 16; TEMP 36.6; O2SAT 100
[2021-02-10] MEDS: LACTATED RINGERS 1,000 ML 125 ML IV CONT (14:15)
[2021-02-10 14:33] LABS: Glucose Point of Care 233 (65-105)
[2021-02-10] MEDS: AZTREONAM 2 GM in DEXTROSE 5% 100 ML 200 ML IVPB ×2 (15:06→22:19)
[2021-02-10] MEDS: SILVERGEL (ELTA) 45 ML 1 APPLIC TOPICAL (16:09)
[2021-02-10 16:34] VITALS: O2SAT 100
--- NOTE | 2021-02-10 16:34 | PCRCNOTE ---
PT STATES HE DOES NOT WEAR CPAP AT HOME.
[2021-02-10 17:34] LABS: Glucose Point of Care 275 (65-105)
[2021-02-10] MEDS: INSULIN ASPART (*BKC) 100 UNITS/ML SUB-Q (17:35)
[2021-02-10 22:00] VITALS: BP 131/85; PULSE 90; RESP 16; TEMP 37.2; O2SAT 96
[2021-02-10 23:29] LABS: Glucose Point of Care 285 (65-105)
[2021-02-11] MEDS: LACTATED RINGERS 1,000 ML 125 ML IV CONT ×3 (00:31→22:34)
[2021-02-11] MEDS: AZTREONAM 2 GM in DEXTROSE 5% 100 ML 200 ML IVPB ×2 (05:10→14:11)
[2021-02-11 06:00] VITALS: BP 141/91; PULSE 88; RESP 20; TEMP 36.5; O2SAT 99
[2021-02-11] MEDS: INSULIN ASPART (*BKC) 100 UNITS/ML SUB-Q ×3 (08:03→17:26)
[2021-02-11 08:04] LABS: Glucose Point of Care 314 (65-105)
[2021-02-11] MEDS: SILVERGEL (ELTA) 45 ML 1 APPLIC TOPICAL (08:14)
--- NOTE | 2021-02-11 08:18 | PM.IMHP ---
H&P: HPI History of Present Illness Date/Time: 02/11/21 08:18 Patient is a 55 year old male with IDDM and severe neuropathy. History of bilateral foot 5th ray resections. He was seen at beside resting comfortably today. No F/C/N/V. States the he was unable to take the antibiotics I prescribed when I saw him last with an ulceration to the plantar foot. He states that he developed worsening in swelling pain and nausea and vomiting over the weekend so he went to the ED at [place] and was admitted. He was started on antibiotics and states that he feels better today. Chief Complaint: diabetic foot infection rigth foot PMFSH Past Medical History Medical History (Updated 02/10/21 @ 14:08 by Caitlyn Rivers MD) Arthritis Coronary artery disease Stent placed EMRE prox LAD02/15/2018 outside hospital Diabetes mellitus Hyperlipidemia Hypertension Prostate cancer Surgical History Surgical History History of back surgery History of carpal tunnel surgery History of cholecystectomy History of foot surgery bilateral History of right knee joint replacement History of rotator cuff surgery Family History Family History (Updated 02/10/21 @ 14:03 by Jacqui Aldrich RN) Father Heart attack Hypertension Mother Heart attack Diabetes mellitus Hyperchloremia Hypertension Sibling Hypertension Diabetes mellitus Social History Social History Social History: Smoked for 1 year in his 20's. Smoking packs per day: 2 Smoking cigarettes per day: 40.0 Smoking status: Former smoker Tobacco type: cigarettes Alcohol intake: never Substance use: never Gender identity (if verbalized by the patient): Male Spiritual care concerns: No Meds Home Medications and Allergies Home Medications Medication Instructions Recorded Confirmed Type aspirin [Aspir-81] 81 mg PO DAILY 01/14/20 02/10/21 History atorvastatin 80 mg PO DAILY 01/14/20 02/10/21 History buspirone 5 mg PO TID 01/14/20 02/10/21 History clopidogrel 75 mg PO DAILY 01/14/20 02/10/21 History fluoxetine [Prozac] 20 mg PO DAILY 01/14/20 02/10/21 History metformin 1,000 mg PO BID 01/14/20 02/10/21 History ropinirole 0.5 mg PO HS 01/14/20 02/10/21 History cyanocobalamin (vitamin B-12) 1,000 mcg PO DAILY 01/27/21 02/10/21 History 1,000 mcg tablet insulin aspar prot-insulin aspart 15 unit SUBCUT TID 01/27/21 02/10/21 History 100 unit/mL (70-30) subcutaneous pen insulin glargine 100 unit/mL (3 60 unit SUBCUT DAILY ml 01/27/21 02/10/21 History mL) subcutaneous pen lisinopril 40 mg tablet 40 mg PO DAILY 01/27/21 02/10/21 History nebivolol 2.5 mg tablet 5 mg PO DAILY 01/27/21 02/10/21 History dulaglutide [Trulicity] 3 mg SUBCUT WEEKLY 02/10/21 02/10/21 History nitroglycerin 4 mg SUBLINGUAL PRN PRN 02/10/21 02/10/21 History Allergies Allergy/AdvReac Type Severity Reaction Status Date / Time codeine Allergy Hives Verified 02/10/21 13:57 Penicillins Allergy Hives Verified 02/10/21 13:57 acetaminophen [From Percocet] AdvReac Sweating Verified 02/10/21 13:57 oxycodone [From Percocet] AdvReac Sweating Verified 02/10/21 13:57 pentazocine [From Talwin] AdvReac Sweating Verified 02/10/21 13:57 propoxyphene AdvReac Sweating Verified 02/10/21 13:57 [From Darvocet-N] Vital Signs Vital Signs - 24 hr 02/10/21 08:49 02/10/21 10:33 02/10/21 11:10 Temperature 36.7 C Pulse Rate 90 86 89 Respiratory Rate 19 17 18 Blood Pressure 137/82 133/80 132/76 Pulse Oximetry 100 98 99 02/10/21 14:00 02/10/21 16:34 02/10/21 22:00 Temperature 36.6 C 37.2 C Pulse Rate 85 90 Respiratory Rate 16 16 Blood Pressure 123/78 131/85 Pulse Oximetry 100 100 96 02/11/21 06:00 Temperature 36.5 C Pulse Rate 88 Respiratory Rate 20 Blood Pressure 141/91 H Pulse Oximetry 99 Exam Extrem: Ankle/foot/toe images: 1. Ulcer mejia
[2021-02-11 09:28] LABS: Erythrocyte Sedimentation Rate 46 mm/hr (0-20)
[2021-02-11] MEDS: lisinopriL 20 MG TABLET 40 MG PO (11:18)
[2021-02-11] MEDS: FLUoxetine HCL 20 MG CAPSULE PO (11:18)
[2021-02-11 11:19] VITALS: PULSE 91
[2021-02-11] MEDS: NEBIVOLOL HCL 5 MG TABLET PO (11:19)
[2021-02-11 12:02] LABS: Glucose Point of Care 365 (65-105)
[2021-02-11] MEDS: busPIRone HCL 5 MG TABLET PO ×2 (12:05→17:25)
--- NOTE | 2021-02-11 12:11 | PM.IMPN ---
Progress Note: A&P Assessment and Plan (1) Diabetic infection of right foot: Code(s): E11.628 - Type 2 diabetes mellitus with other skin complications; L08.9 - Local infection of the skin and subcutaneous tissue, unspecified Status: Acute Assessment and Plan: Podiatry is on consult Local care MRI pending Continue aztreonam and vancomycin Id consult (2) [place] (acute kidney injury): Code(s): N17.9 - Acute kidney failure, unspecified Status: Acute Assessment and Plan: IV fluids ongoing Will obtain a BMP Continue to monitor Avoid nephrotoxin Daily intake and output (3) Coronary artery disease: Code(s): I25.10 - Atherosclerotic heart disease of ruby coronary artery without angina pectoris Status: Acute Assessment and Plan: Patient is status post stent placement do well anti-platelet therapy Continue to monitor Appears to be stable (4) Hypertension: Code(s): I10 - Essential (primary) hypertension Status: Acute Assessment and Plan: Continue home meds Continue to monitor (5) Obstructive sleep apnea: Onset Date: ~08/2020 Code(s): G47.33 - Obstructive sleep apnea (adult) (pediatric) Status: Acute Assessment and Plan: Unclear if wearing CPAP Subjective Date/time seen: 02/11/21 12:11 I feel much better today Review of Systems Review of Systems: Narrative: Patient presented to the emergency room due to right lower extremity plantar aspirate of the foot ulcer with purulent drainage for several weeks days to weeks sent over to emergency room by his thai masseur Eyes: Comments: No fevers no chills no rigors ENT: Comments: No earache no nasal congestion no sore throat Cardiovascular: Comments: No chest pain no PND no orthopnea Respiratory: Comments: No shortness of breath no cough no sputum production Gastrointestinal: Comments: No nausea vomiting abdominal pain or diarrhea Musculoskeletal: Comments: Right foot ulcer with purulent discharge Integumentary/Breasts: Comments: Right foot ulcer Neurologic: Comments: No sensorimotor deficit Exam Narrative: Exam Narrative: Sitting in bed in no acute distress ,well-appearing Const: General: comfortable, no acute distress, well developed, alert and awake Nutritional Appearance: average body habitus Orientation/consciousness: patient oriented x3 HENMT: Head: normal to inspection, normocephalic and atraumatic Ears: hearing grossly normal bilaterally Face and sinus: normal facial exam Eyes: General: appearance normal, both eyes and all related structures Pupils: Equal, round and reactive pupils present EOM: EOMs intact bilaterally Neck: Neck: full ROM, no lymphadenopathy and no JVD Thyroid: thyroid normal Lymphatic: no lymphadenopathy noted Resp: Effort & Inspection: normal respiratory effort and able to speak in complete sentences Auscultation: clear to auscultation bilaterally Cardio: Jugular venous distension: no JVD Rate: regular rate Rhythm: regular rhythm Heart sounds: S1 normal heart sound present and S2 normal heart sound present GI: GI Palp: Yes Soft to palpation and Yes No hepatosplenomegaly present : General: Yes deferred Skin: Rashes: no rashes Wounds: wounds noted (Right foot ulcer at the base of the 4th metatarsal) Neuro: General: patient oriented x3 and CN's II-XI intact bilaterally Cranial nerves: Yes CN's II-XII intact bilaterally and Yes Equal, round and reactive pupils present Cognition (Neuro): normal cognition Speech: normal speech Gait exam (Neuro): Normal gait present Motor exam (neuro): 5/5 motor strength present throughout Extrem: General: normal to inspection, full ROM, no joint enlargement, no pedal edema and other (Right foot ulcer at the base of the 4th metatarsal) Objective Data Vital Signs Vital Signs: Vital Signs - 24 hr 02/10/21 14:00 02/10/21 16:34 02/10/21 22:00 Temperature 97.8 F 98.9 F Pulse Rate 85 90 Respirat
[2021-02-11 12:46] LABS: Hematocrit 39.9 % (42.0-52.0); Hemoglobin 13.1 g/dL (14.0-18.0); Mean Corpuscular HGB Conc 32.8 g/dl (32-36); Mean Corpuscular Hemoglobin 28.4 pg (26-34); Mean Corpuscular Volume 86.6 fl (80-100); Mean Platelet Volume 9.9 fl (7.4-10.4); Platelet Count Result 283 k/mm3 (150-375); Red Blood Count 4.61 M/mm3 (4.6-6.20); Red Cell Distribution Width 12.5 % (11.5-14.5); White Blood Count 12.5 K/mm3 (4.5-10.0)
[2021-02-11 13:05] LABS: Anion Gap 8 mmol/L (8-16); Blood Urea Nitrogen 20 mg/dL (9-20); Carbon Dioxide 23 mmol/L (22-30); Chloride 100 mmol/L (98-107); Estimated CRCL calculation 103 ml/min; Estimated Glomerular Filt Rate > 60; Glucose 334 mg/dL (75-110); Potassium 4.3 mmol/L (3.4-5.0); Sodium 131 mmol/L (137-145)
[2021-02-11 14:00] VITALS: BP 139/81; PULSE 88; RESP 18; TEMP 36.2; O2SAT 98
--- NOTE | 2021-02-11 14:03 | PC.NURSE ---
Attempted to obtain medical records for patients artificial sphincter 02/11/21 @ 1015. Unable to perform MRI until we have this information.
--- NOTE | 2021-02-11 15:52 | CONS_ITS ---
DATE OF CONSULTATION: 02/11/2021 REASON FOR CONSULTATION: Diabetic foot infection. HISTORY OF THE PRESENT ILLNESS: A 55-year-old male whose last A1c was approximately 9.7%, lower than the previous 13. His medications have been adjusted. He has had previous toe resection of bone, though not the entire toe, some 3 years ago and received 6 weeks of IV antibiotics. I do not recall if this was under my direction or not. The patient had good symptomatic results. More recently, he has had a pressure also develop over the right foot in the area of the plantar 5th metatarsal head. This became painful about 1 week prior to admission. He was started on levofloxacin and trimethoprim sulfa, though could not take the doses beginning 2 days before admission due to nausea and vomiting. He was directed to the emergency room yesterday by Dr. Pacheco, consultation requested. Here he has been given vancomycin and aztreonam and consultation requested. No other recent antibiotics. No immunosuppressants. His temperature is high as about 37.3 at home. No chills. No sweats. No other trauma. No recent operations. PRESENT MEDICATIONS: See above. No immunosuppressants. ALLERGIES: PENICILLIN CAUSED HIVES. OTHERS NOT PERTINENT. PAST MEDICAL HISTORY: In addition to the above, rotator cuff surgery, right total knee arthroplasty, cholecystectomy, carpal tunnel surgery, back surgery, prostate cancer, hypertension, hyperlipidemia. REVIEW OF SYSTEMS: Hyperglycemia, peripheral neuropathy with very low sensation in the feet. 14-point review otherwise negative. FAMILY HISTORY: Heart disease, diabetes, hyperlipidemia. SOCIAL HISTORY: No family at the bedside. Lives locally. HABITS: Past tobacco. No alcohol to excess. PHYSICAL EXAMINATION: GENERAL: Middle-aged male who appears his actual age. No acute distress. VITAL SIGNS: Afebrile. 141/91, 88, 20, 99% on room air. SKIN: No generalized rashes. Warm and dry. Tattoo right forearm. NODES: No cervical adenopathy. EENT: Conjunctivae are normal. The oropharynx, oral mucosa normal. NECK: No masses, thyromegaly, or meningismus. LUNGS: Clear to auscultation and percussion. CARDIAC: Regular rate and rhythm without murmurs or gallops. Dorsalis pedis pulses 1+ equal. Radial pulses 2+. ABDOMEN: Obese, nontender. No mass. No organomegaly. EXTREMITIES: Left foot is bland. Right leg has no evidence of cellulitis. The patient has edema and mild erythema over the plantar aspect of the right distal lateral foot. He has a skin defect approximately 0.5 cm in diameter with serous discharge. He has diminished light touch sensation. RADIOLOGY: MRI is pending. He has had plain films of the foot performed, which showed healing fracture and osteoarthritis. His white count is 12.5, down from 15.7; hemoglobin 13.1, which is stable; platelets of 283; his differential not repeated. His electrolytes with hyponatremia, BUN, creatinine normalized from slightly high, glucose was 233, now 334. Hemoglobin A1c in December last year 11.3%. CRP is 17. Blood cultures, no growth after 1 day's incubation. Superficial swab was obtained as well today. ASSESSMENT: 1. Diabetic foot infection with possible osteomyelitis, acute, of the distal lateral right foot. Considerations include skin huang, less likely hematogenous spread from distant site. He relates a history of staph infections, but methicillin-resistant Staphylococcus aureus is less likely. 2. Diabetes mellitus type 2, under better but not optimal control. 3. Diabetic peripheral neuropathy. 4. Hyperlipidemia. 5. Penicillin allergy. RECOMMENDATIONS: 1. Change aztreonam to ceftriaxone and continue vancomycin. 2. Follow up on cultures as well as his MRI. 3. If osteomyelitis
[2021-02-11 17:24] LABS: Glucose Point of Care 318 (65-105)
[2021-02-11] MEDS: metFORMIN HCL 500 MG TABLET 1000 MG PO (17:25)
[2021-02-11] MEDS: rOPINIRole HCL 0.5 MG TABLET PO (20:55)
[2021-02-11 22:00] VITALS: BP 131/77; PULSE 86; RESP 18; TEMP 37.1; O2SAT 97
[2021-02-12 00:23] LABS: Glucose Point of Care 280 (65-105)
[2021-02-12 05:58] VITALS: BP 131/76; PULSE 85; RESP 18; TEMP 36.6; O2SAT 99
[2021-02-12 07:45] LABS: Glucose Point of Care 187 (65-105)
[2021-02-12 08:15] VITALS: O2SAT 98
--- NOTE | 2021-02-12 08:20 | WPDPN ---
Progress Note: A&P Additional Plan diabetic foot infection right foot - I will take the patient to the OR tomorrow for 1. Incision and drainage right foot 2. Elevational floating 4th metatarsal osteotomy right foot. To prevent future ulceration. Pre op orders will be placed. -WBC decreasing, ESR less than 70. -Awaiting MRI -Xrays show no osteolysis due to osteomyelitis - Culture showing gram positive cocci in clusters awaiting sensitivities. - ID consult will be necessary for antibiotic management Exam Extrem: Other: Purulent drainage present to the right foot plantar wound. Erythema and edema decreased compared to yesterday. Objective Data Vital Signs Vital Signs: Vital Signs - 24 hr 02/11/21 11:19 02/11/21 14:00 02/11/21 22:00 Temperature 36.2 C L 37.1 C Pulse Rate 91 88 86 Respiratory Rate 18 18 Blood Pressure 139/81 131/77 Pulse Oximetry 98 97 02/12/21 05:58 02/12/21 08:15 Temperature 36.6 C Pulse Rate 85 Respiratory Rate 18 Blood Pressure 131/76 Pulse Oximetry 99 98 Intake/Output Intake/Output: Intake & Output 02/09/21 02/10/21 02/11/21 02/12/21 23:59 23:59 23:59 23:59 Intake Total 2180 5670 730 Output Total 2925 2000 Balance 2180 2745 -1270 Meds/Results Medications: Active Medications Generic Name Dose Route Start Last Admin Trade Name Freq PRN Reason Stop Dose Admin Aspirin 81 mg 02/12/21 09:00 Aspirin 81 Mg Enteric Tablet PO DAILY [facility] Atorvastatin Calcium 80 mg 02/12/21 09:00 Atorvastatin 40 Mg Tablet PO DAILY [facility] Buspirone HCl 5 mg 02/11/21 13:00 02/11/21 17:25 Buspirone Hcl 5 Mg Tablet PO 5 mg TID [facility] Administration Clopidogrel Bisulfate 75 mg 02/12/21 09:00 Clopidogrel Bisulfate 75 Mg Tablet PO DAILY [facility] Cyanocobalamin 1,000 mcg 02/12/21 09:00 Cyanocobalamin 1,000 Mcg Tablet PO DAILY [facility] Dextrose 12.5 gm 02/10/21 16:32 Dextrose 50% 25 Gm/50 Ml Syringe IV PUSH PRN PRN Hypoglycemia Protocol Fluoxetine HCl 20 mg 02/11/21 11:00 02/11/21 11:18 Fluoxetine Hcl 20 Mg Capsule PO 20 mg DAILY LOU Administration Glucagon 1 mg 02/10/21 16:32 Glucagon For Inj 1 Mg Vial IM PRN PRN Hypoglycemia Protocol Glucose 15 gm 02/10/21 16:32 Glucose Oral Gel 15 Gm Of Glucse In 37.5 Gm Tube PO PRN PRN Hypoglycemia Protocol Lactated Ringer's 1,000 mls @ 125 mls/hr 02/10/21 12:05 02/11/21 22:34 Lr - Lactated Ringers Iv IV CONT 125 mls/hr .Q8H LOU Administration Dextrose 1,000 mls @ 100 mls/hr 02/10/21 16:32 Dextrose 5% 1,000 Ml IVPB PRN PRN Hypoglycemia Protocol Ceftriaxone Sodium 2 gm in 100 mls @ 200 mls/hr 02/11/21 15:00 02/11/21 15:35 Rocephin 2 Gm/D5w 100 Ml IVPB Infused Q24H [facility] Infusion Vancomycin HCl 2,000 mg in 500 mls @ 250 mls/hr 02/12/21 12:00 Vancomycin 2,000 Mg/D5w 500 Ml IVPB Q12H LOU Insulin Aspart 2 - 5 units 02/10/21 17:00 02/11/21 17:26 Insulin Aspart (*Bkc) 100 Units/Ml SUB-Q 4 units TIDWM LOU Administration Protocol Insulin Aspart 15 units 02/11/21 13:00 02/11/21 17:26 Insuln Asp Prt/Insulin Aspart 100 Units/MlNovolog Mix(*Bkc) SUB-Q 15 units TID LOU Administration Insulin Glargine 60 units 02/12/21 09:00 Insulin Glargine (*Bkc) 100 Units/Ml SUB-Q DAILY [facility] Lisinopril 40 mg 02/11/21 11:00 02/11/21 11:18 Lisinopril 20 Mg Tablet PO 40 mg DAILY [facility] Administration Metformin HCl 1,000 mg 02/11/21 17:00 02/11/21 17:25 Metformin Hcl 500 Mg Tablet PO 1,000 mg BID LOU Administration Nebivolol 5 mg 02/11/21 11:00 02/11/21 11:19 Nebivolol Hcl 5 Mg Tablet PO 5 mg DAILY [facility]OU Administration Nitroglycerin 4 mg 02/11/21 10:38 Nitroglycerin Sl 0.4 Mg Tablet SUBLINGUAL PRN PRN Chest Pain Non-Formulary Medication 3 mg 02/18/21 09:00 Dulaglutide [Trulicity] SUB-Q 03/20/21 09:01 WEEKLY LOU R
[2021-02-12] MEDS: INSULIN GLARGINE (*BKC) 100 UNITS/ML 60 UNITS SUB-Q (09:42)
[2021-02-12 09:45] VITALS: PULSE 85
[2021-02-12] MEDS: NEBIVOLOL HCL 5 MG TABLET PO (09:45)
[2021-02-12] MEDS: CLOPIDOGREL BISULFATE 75 MG TABLET PO (09:45)
[2021-02-12] MEDS: CYANOCOBALAMIN 1,000 MCG TABLET 1000 MCG PO (09:45)
[2021-02-12] MEDS: metFORMIN HCL 500 MG TABLET 1000 MG PO ×2 (09:45→17:14)
[2021-02-12] MEDS: busPIRone HCL 5 MG TABLET PO ×3 (09:45→17:14)
[2021-02-12] MEDS: ASPIRIN 81 MG ENTERIC TABLET PO (09:45)
[2021-02-12] MEDS: ATORVASTATIN 40 MG TABLET 80 MG PO (09:46)
[2021-02-12] MEDS: FLUoxetine HCL 20 MG CAPSULE PO (09:46)
[2021-02-12] MEDS: lisinopriL 20 MG TABLET 40 MG PO (09:46)
[2021-02-12] MEDS: SILVERGEL (ELTA) 45 ML 1 APPLIC TOPICAL (09:48)
[2021-02-12] MEDS: LACTATED RINGERS 1,000 ML 125 ML IV CONT ×2 (09:55→20:59)
[2021-02-12 11:40] LABS: Glucose Point of Care 290 (65-105)
[2021-02-12] MEDS: INSULIN ASPART (*BKC) 100 UNITS/ML SUB-Q ×2 (11:54→17:15)
[2021-02-12 12:20] LABS: Vancomycin Trough 11.2 ug/mL (10.0-20.0)
[2021-02-12 13:20] VITALS: BP 116/78; PULSE 91; RESP 20; TEMP 36.8; O2SAT 96
[2021-02-12 13:31] VITALS: BP 116/78; PULSE 91; RESP 20; TEMP 36.8; O2SAT 98
--- NOTE | 2021-02-12 14:38 | PC.NURSE ---
On 02/12/21, the student, [Gail Suggs ], provided care and completed [facility] documentation on this patient. I have reviewed the student's documentation and agree with the findings.
--- NOTE | 2021-02-12 15:25 | PM.IMPN ---
Progress Note: A&P Assessment and Plan (1) Diabetic infection of right foot: Code(s): E11.628 - Type 2 diabetes mellitus with other skin complications; L08.9 - Local infection of the skin and subcutaneous tissue, unspecified Status: Acute Assessment and Plan: PATIENT IS UNDERGOING I AND D BY PODIATRY ON VANCOMYCIN AND CEFTRIAXONE APPRECIATE ID NOTE APPRECIATE PODIATRY NOTE LOCAL CARE SUPPORTIVE CARE AWAIT CULTURES IDENTIFICATION AND SENSITIVITY (2) [place] (acute kidney injury): Code(s): N17.9 - Acute kidney failure, unspecified Status: Acute Assessment and Plan: IV FLUIDS CONTINUE TO MONITOR (3) Coronary artery disease: Code(s): I25.10 - Atherosclerotic heart disease of [place] coronary artery without angina pectoris Status: Acute Assessment and Plan: STABLE CONTINUE LISINOPRIL CONTINUE NEBIVOLOL CONTINUE PLAVIX CONTINUE STATIN CONTINUE TO MONITOR (4) Hypertension: Code(s): I10 - Essential (primary) hypertension Status: Acute Assessment and Plan: STABLE (5) Obstructive sleep apnea: Onset Date: ~08/2020 Code(s): G47.33 - Obstructive sleep apnea (adult) (pediatric) Status: Acute Assessment and Plan: CPAP AT NIGHTTIME (6) Diabetes mellitus: Code(s): E11.9 - Type 2 diabetes mellitus without complications Status: Acute Assessment and Plan: CONTINUE HOME MEDS ACCU-CHEKS AC AND HS ON INSULIN ASPART AND INSULIN GLARGINE HOLDING METFORMIN HOLDING TRULICITY Subjective Date/time seen: 02/12/21 15:25 I FEEL MUCH BETTER Review of Systems Review of Systems: Narrative: PATIENT PRESENTED TO THE EMERGENCY ROOM AFTER HE WAS SEEN IN HIS DOCTOR'S OFFICE DUE TO WORSENING OF RIGHT FOOT ULCER WITH PURULENT DISCHARGE PATIENT DENIES ANY ISSUES CURRENTLY Exam Narrative: Exam Narrative: SITTING IN BED Const: General: comfortable, no acute distress, well developed, alert and awake Nutritional Appearance: average body habitus Orientation/consciousness: patient oriented x3 HENMT: Head: normal to inspection, normocephalic and atraumatic Ears: hearing grossly normal bilaterally Face and sinus: normal facial exam Eyes: General: appearance normal, both eyes and all related structures Pupils: Equal, round and reactive pupils present EOM: EOMs intact bilaterally Neck: Neck: full ROM, no lymphadenopathy and no JVD Thyroid: thyroid normal Lymphatic: no lymphadenopathy noted Resp: Effort & Inspection: normal respiratory effort and able to speak in complete sentences Auscultation: clear to auscultation bilaterally Cardio: Jugular venous distension: no JVD Rate: regular rate Rhythm: regular rhythm Heart sounds: S1 normal heart sound present and S2 normal heart sound present GI: GI Palp: Yes Soft to palpation and Yes No hepatosplenomegaly present : General: Yes deferred Skin: Rashes: no rashes Wounds: wounds noted right plantar foot Neuro: General: patient oriented x3 and CN's II-XI intact bilaterally Cranial nerves: Yes CN's II-XII intact bilaterally and Yes Equal, round and reactive pupils present Cognition (Neuro): normal cognition Speech: normal speech Gait exam (Neuro): Normal gait present Motor exam (neuro): 5/5 motor strength present throughout Extrem: General: other (RIGHT FOOT WOUND DRESSING IN PLACE) Objective Data Vital Signs Vital Signs: Vital Signs - 24 hr 02/11/21 22:00 02/12/21 05:58 02/12/21 08:15 Temperature 98.8 F 97.9 F Pulse Rate 86 85 Respiratory Rate 18 18 Blood Pressure 131/77 131/76 Pulse Oximetry 97 99 98 02/12/21 09:45 02/12/21 13:20 02/12/21 13:31 Temperature 98.2 F 98.2 F Pulse Rate 85 91 91 Respiratory Rate 20 20 Blood Pressure 116/78 116/78 Pulse Oximetry 96 98 Intake/Output Intake/Output: Intake & Output 02/09/21 02/10/21 02/11/21 02/12/21 23:59 23:59 23:59 23:59 Intake Total 2185 9118 7733 Output Total 2560 1999 Balance 2180 0705
[2021-02-12 17:19] LABS: Glucose Point of Care 249 (65-105)
[2021-02-12] MEDS: rOPINIRole HCL 0.5 MG TABLET PO (20:52)
[2021-02-12 22:00] VITALS: BP 113/65; PULSE 92; RESP 20; TEMP 37.2; O2SAT 98
[2021-02-13 01:48] LABS: Glucose Point of Care 175 (65-105)
[2021-02-13 06:00] VITALS: BP 149/88; PULSE 84; RESP 20; TEMP 36.7; O2SAT 97
[2021-02-13 06:34] LABS: Estimated CRCL calculation 127 ml/min; Estimated Glomerular Filt Rate > 60
[2021-02-13] MEDS: ATORVASTATIN 40 MG TABLET 80 MG PO (08:07)
[2021-02-13] MEDS: CLOPIDOGREL BISULFATE 75 MG TABLET PO (08:07)
[2021-02-13 08:08] VITALS: PULSE 86
[2021-02-13] MEDS: lisinopriL 20 MG TABLET 40 MG PO (08:08)
[2021-02-13] MEDS: FLUoxetine HCL 20 MG CAPSULE PO (08:08)
[2021-02-13] MEDS: ASPIRIN 81 MG ENTERIC TABLET PO (08:08)
[2021-02-13] MEDS: metFORMIN HCL 500 MG TABLET 1000 MG PO ×2 (08:08→16:55)
[2021-02-13] MEDS: NEBIVOLOL HCL 5 MG TABLET PO (08:08)
[2021-02-13] MEDS: busPIRone HCL 5 MG TABLET PO ×3 (08:08→16:55)
[2021-02-13] MEDS: SILVERGEL (ELTA) 45 ML 1 APPLIC TOPICAL (08:09)
[2021-02-13] MEDS: CYANOCOBALAMIN 1,000 MCG TABLET 1000 MCG PO (08:10)
[2021-02-13 08:14] LABS: Glucose Point of Care 145 (65-105)
[2021-02-13] MEDS: INSULIN GLARGINE (*BKC) 100 UNITS/ML 60 UNITS SUB-Q (08:23)
[2021-02-13] MEDS: LACTATED RINGERS 1,000 ML 125 ML IV CONT ×2 (08:24→20:31)
[2021-02-13 11:41] LABS: Glucose Point of Care 168 (65-105)
[2021-02-13 14:00] VITALS: BP 145/75; PULSE 86; RESP 18; TEMP 37.2; O2SAT 97
[2021-02-13 16:28] LABS: Glucose Point of Care 152 (65-105)
--- NOTE | 2021-02-13 16:43 | PM.IMPN ---
Progress Note: A&P Assessment and Plan (1) Diabetic infection of right foot: Code(s): E11.628 - Type 2 diabetes mellitus with other skin complications; L08.9 - Local infection of the skin and subcutaneous tissue, unspecified Status: Acute Assessment and Plan: PATIENT IS STATUS POST OSTECTOMY BY PODIATRY CONTINUE CURRENT CHOICE OF ANTIBIOTICS AWAIT CULTURES APPRECIATE PODIATRY NOTE (2) Obstructive sleep apnea: Onset Date: ~08/2020 Code(s): G47.33 - Obstructive sleep apnea (adult) (pediatric) Status: Acute Assessment and Plan: CPAP AT NIGHT (3) Hypertension: Code(s): I10 - Essential (primary) hypertension Status: Acute Assessment and Plan: CONTINUE LISINOPRIL (4) Coronary artery disease: Code(s): I25.10 - Atherosclerotic heart disease of [place] coronary artery without angina pectoris Status: Acute Assessment and Plan: PATIENT IS ON STATIN, LISINOPRIL ,NEBIVOLOL, PLAVIX CONTINUE TO MONITOR (5) Diabetes mellitus: Code(s): E11.9 - Type 2 diabetes mellitus without complications Status: Acute Assessment and Plan: PATIENT IS ON LONG-ACTING INSULIN GLARGINE AND INSULIN ASPART HOLDING TRULICITY HOLD METFORMIN Subjective Date/time seen: 02/13/21 16:43 I FEEL BETTER Review of Systems Review of Systems: Narrative: PATIENT DENIES ANY ISSUES AT THE PRESENT TIME HIS STATUS POST SURGERY BY PODIATRY Exam Narrative: Exam Narrative: SITTING IN BED Const: General: comfortable, no acute distress, well developed, alert and awake Nutritional Appearance: average body habitus Orientation/consciousness: patient oriented x3 HENMT: Head: normal to inspection, normocephalic and atraumatic Ears: hearing grossly normal bilaterally Face and sinus: normal facial exam Eyes: General: appearance normal, both eyes and all related structures Pupils: Equal, round and reactive pupils present EOM: EOMs intact bilaterally Neck: Neck: full ROM, no lymphadenopathy and no JVD Thyroid: thyroid normal Lymphatic: no lymphadenopathy noted Resp: Effort & Inspection: normal respiratory effort and able to speak in complete sentences Auscultation: clear to auscultation bilaterally Cardio: Jugular venous distension: no JVD Rate: regular rate Rhythm: regular rhythm Heart sounds: S1 normal heart sound present and S2 normal heart sound present GI: GI Palp: Yes Soft to palpation and Yes No hepatosplenomegaly present : General: Yes deferred Skin: Rashes: no rashes Wounds: no wounds Neuro: General: patient oriented x3 and CN's II-XI intact bilaterally Cranial nerves: Yes CN's II-XII intact bilaterally and Yes Equal, round and reactive pupils present Cognition (Neuro): normal cognition Speech: normal speech Gait exam (Neuro): Normal gait present Motor exam (neuro): 5/5 motor strength present throughout Extrem: General: other ( RIGHT LOWER EXTREMITY WOUND DRESSING IN PLACE) Objective Data Vital Signs Vital Signs: Vital Signs - 24 hr 02/12/21 22:00 02/13/21 06:00 02/13/21 08:08 Temperature 99 F 98.1 F Pulse Rate 92 84 86 Respiratory Rate 20 20 Blood Pressure 113/65 149/88 H Pulse Oximetry 98 97 02/13/21 14:00 Temperature 98.9 F Pulse Rate 86 Respiratory Rate 18 Blood Pressure 145/75 H Pulse Oximetry 97 Intake/Output Intake/Output: Intake & Output 02/10/21 02/11/21 02/12/21 02/13/21 23:59 23:59 23:59 23:59 Intake Total 2180 5670 5360 2600 Output Total 2925 3000 1575 Balance 2180 2745 2360 1025 Meds/Results Medications: Active Medications Generic Name Dose Route Start Last Admin Trade Name Iglesiaq PRN Reason Stop Dose Admin Aspirin 81 mg 02/12/21 09:00 02/13/21 08:08 Aspirin 81 Mg Enteric Tablet PO 81 mg DAILY [facility]OU Administration Atorvastatin Calcium 80 mg 02/12/21 09:00 02/13/21 08:07 Atorvastatin 40 Mg Tablet PO 80 mg DAILY [facility]OU Administration Buspirone HCl 5 mg 02/11/21 1
[2021-02-13] MEDS: rOPINIRole HCL 0.5 MG TABLET PO (20:31)
[2021-02-13 20:50] LABS: Glucose Point of Care 191 (65-105)
[2021-02-13 21:55] VITALS: BP 155/79; PULSE 86; RESP 16; TEMP 37.1; O2SAT 98
[2021-02-14] VITALS (13 sets, daily range): BP systolic 138–167; BP diastolic 70–97; PULSE 78–89; RESP 10–18; TEMP 36.2–37.7; O2SAT 96–100
[2021-02-14 06:29] LABS: Basophils Absolute Auto 0.1 K/mm3 (0.0-0.1); Basophils Percent Auto 0.5 % (0.2-1.2); Eosinophils Absolute Auto 0.3 K/mm3 (0-0.3); Eosinophils Percent Auto 2.6 % (0-4.4); Hematocrit 35.3 % (42.0-52.0); Hemoglobin 11.4 g/dL (14.0-18.0); Immature Granulocyte Absolute 0.09 K/mm3 (0.00-0.031); Immature Granulocyte Percent A 0.9 % (0-0.5); Lymphocytes Absolute Auto 1.86 K/mm3 (0.9-3.2); Lymphocytes Percent Auto 19.6 % (18.3-44.2); Mean Corpuscular HGB Conc 32.3 g/dl (32-36); Mean Corpuscular Hemoglobin 28.1 pg (26-34); Mean Corpuscular Volume 86.9 fl (80-100); Mean Platelet Volume 9.4 fl (7.4-10.4); Monocytes Absolute Auto 0.7 K/mm3 (0.1-0.6); Monocytes Percent Auto 7.4 % (2.6-8.5); Neutrophils Absolute Auto 6.6 K/mm3 (1.3-6.7); Platelet Count Result 248 k/mm3 (150-375); Red Blood Count 4.06 M/mm3 (4.6-6.20); Red Cell Distribution Width 12.3 % (11.5-14.5); White Blood Count 9.5 K/mm3 (4.5-10.0)
[2021-02-14 06:39] LABS: Anion Gap 5 mmol/L (8-16); Blood Urea Nitrogen 9 mg/dL (9-20); Carbon Dioxide 26 mmol/L (22-30); Chloride 105 mmol/L (98-107); Estimated CRCL calculation 166 ml/min; Estimated Glomerular Filt Rate > 60; Glucose 175 mg/dL (75-110); Potassium 3.8 mmol/L (3.4-5.0); Sodium 136 mmol/L (137-145)
--- NOTE | 2021-02-14 07:11 | WPDHPUPDATE1 ---
History and Physical Update Update Date/Time: 02/14/21 07:11 History and Physical has been reviewed, including an updated exam of the patient. There are NO changes in the patient's condition. Risks, benefits, and alternatives have been discussed and questions answered. Patient agrees to proceed with procedure.
[2021-02-14 08:26] LABS: Glucose Point of Care 167 (65-105)
--- NOTE | 2021-02-14 08:52 | WPDPN ---
Progress Note: A&P Additional Plan Diabetic foot infection right foot -Consented for 1. Metatarsal osteotomy right fourth metatarsal 2. Incision and drainage right foot Exam Extrem: Other: Continued edema and erythema and purulent drainage Objective Data Vital Signs Vital Signs: Vital Signs - 24 hr 02/13/21 14:00 02/13/21 21:55 02/14/21 06:00 Temperature 37.2 C 37.1 C 37.2 C Pulse Rate 86 86 80 Respiratory Rate 18 16 18 Blood Pressure 145/75 H 155/79 H 151/78 H Pulse Oximetry 97 98 98 Intake/Output Intake/Output: Intake & Output 02/11/21 02/12/21 02/13/21 02/14/21 23:59 23:59 23:59 23:59 Intake Total 5670 5360 5090 700 Output Total 2928 3000 2825 1325 Balance 2745 2360 2265 -477 Meds/Results Medications: Active Medications Generic Name Dose Route Start Last Admin Trade Name Freq PRN Reason Stop Dose Admin Aspirin 81 mg 02/12/21 09:00 02/13/21 08:08 Aspirin 81 Mg Enteric Tablet PO 81 mg DAILY LOU Administration Atorvastatin Calcium 80 mg 02/12/21 09:00 02/13/21 08:07 Atorvastatin 40 Mg Tablet PO 80 mg DAILY LOU Administration Buspirone HCl 5 mg 02/11/21 13:00 02/13/21 16:55 Buspirone Hcl 5 Mg Tablet PO 5 mg TID LOU Administration Clopidogrel Bisulfate 75 mg 02/12/21 09:00 02/13/21 08:07 Clopidogrel Bisulfate 75 Mg Tablet PO 75 mg DAILY [facility]OU Administration Cyanocobalamin 1,000 mcg 02/12/21 09:00 02/13/21 08:10 Cyanocobalamin 1,000 Mcg Tablet PO 1,000 mcg DAILY [facility]OU Administration Dextrose 12.5 gm 02/10/21 16:32 Dextrose 50% 25 Gm/50 Ml Syringe IV PUSH PRN PRN Hypoglycemia Protocol Fluoxetine HCl 20 mg 02/11/21 11:00 02/13/21 08:08 Fluoxetine Hcl 20 Mg Capsule PO 20 mg DAILY [facility]OU Administration Glucagon 1 mg 02/10/21 16:32 Glucagon For Inj 1 Mg Vial IM PRN PRN Hypoglycemia Protocol Glucose 15 gm 02/10/21 16:32 Glucose Oral Gel 15 Gm Of Glucse In 37.5 Gm Tube PO PRN PRN Hypoglycemia Protocol Lactated Ringer's 1,000 mls @ 125 mls/hr 02/10/21 12:05 02/13/21 20:31 Lr - Lactated Ringers Iv IV CONT 125 mls/hr .Q8H LOU Administration Dextrose 1,000 mls @ 100 mls/hr 02/10/21 16:32 Dextrose 5% 1,000 Ml IVPB PRN PRN Hypoglycemia Protocol Ceftriaxone Sodium 2 gm in 100 mls @ 200 mls/hr 02/11/21 15:00 02/13/21 15:29 Rocephin 2 Gm/D5w 100 Ml IVPB 200 mls/hr Q24H LOU Administration Vancomycin HCl 2,000 mg in 500 mls @ 250 mls/hr 02/12/21 12:00 02/14/21 02:41 Vancomycin 2,000 Mg/D5w 500 Ml IVPB Infused Q12H LOU Infusion Insulin Aspart 2 - 5 units 02/10/21 17:00 02/13/21 16:42 Insulin Aspart (*Bkc) 100 Units/Ml SUB-Q Not Given TIDWM [facility]O Protocol Insulin Aspart 15 units 02/11/21 13:00 02/13/21 16:54 Insuln Asp Prt/Insulin Aspart 100 Units/MlNovolog Mix(*Bkc) SUB-Q 15 units TID LOU Administration Insulin Glargine 60 units 02/12/21 09:00 02/13/21 08:23 Insulin Glargine (*Bkc) 100 Units/Ml SUB-Q 60 units DAILY [facility] Administration Lisinopril 40 mg 02/11/21 11:00 02/13/21 08:08 Lisinopril 20 Mg Tablet PO 40 mg DAILY [facility] Administration Metformin HCl 1,000 mg 02/11/21 17:00 02/13/21 16:55 Metformin Hcl 500 Mg Tablet PO 1,000 mg BID LOU Administration Nebivolol 5 mg 02/11/21 11:00 02/13/21 08:08 Nebivolol Hcl 5 Mg Tablet PO 5 mg DAILY [facility]OU Administration Nitroglycerin 4 mg 02/11/21 10:38 Nitroglycerin Sl 0.4 Mg Tablet SUBLINGUAL PRN PRN Chest Pain Non-Formulary Medication 3 mg 02/18/21 09:00 Dulaglutide [Trulicity] SUB-Q 03/20/21 09:01 WEEKLY LOU Ropinirole HCl 0.5 mg 02/11/21 21:00 02/13/21 20:31 Ropinirole Hcl 0.5 Mg Tablet PO 0.5 mg HS LOU Administration Silver Nitrate 1 applic 02/10/21 09:00 02/13/21 08:09 Silvergel (Elta) 45 Ml TOPICAL 1 applic DAILY LOU Administration Wound Care/Dressing Products 1
[2021-02-14] MEDS: LACTATED RINGERS 1,000 ML 125 ML IV CONT (09:24)
--- NOTE | 2021-02-14 09:41 | ECG_ITS ---
Measurements Intervals [place] Rate: 79 P: 41 RI: 187 QRS: 4 QRSD: 101 T: 20 QT: 371 QTc: 425 Interpretive Statements SINUS RHYTHM BASELINE ARTIFACT- I, II, III, AVR, AVL, AVF, V1-V2 NORMAL ECG Electronically Signed On 02-14-2021 11:54:40 CDT by Ras Angulo D.O.
[2021-02-14] MEDS: busPIRone HCL 5 MG TABLET PO ×2 (09:45→16:02)
[2021-02-14] MEDS: FLUoxetine HCL 20 MG CAPSULE PO (09:45)
[2021-02-14] MEDS: CYANOCOBALAMIN 1,000 MCG TABLET 1000 MCG PO (09:45)
[2021-02-14] MEDS: NEBIVOLOL HCL 5 MG TABLET PO (09:45)
[2021-02-14] MEDS: ATORVASTATIN 40 MG TABLET 80 MG PO (09:45)
[2021-02-14 11:36] LABS: Vancomycin Trough 13.1 ug/mL (10.0-20.0)
[2021-02-14] MEDS: LACTATED RINGERS 1,000 ML 30 ML IV CONT (11:45)
[2021-02-14 11:46] LABS: Glucose Point of Care 155 (65-105)
--- NOTE | 2021-02-14 12:20 | WPDANESEPPF ---
Anes - Initial Pre Proc Eval Procedure: Operation Date: 02/14/21 13:00 Proposed Procedures p Incision And Drainage, Right Foot - Lio Pacheco JR, MD s Fourth Metatarsal Osteotomy, Right Foot - Lio Pacheco JR, MD Date/Time: 02/14/21 12:20 Surgeon: Caitlyn Rivers MD Pre Op Diagnosis: Diabetic foot infection, right foot Patient Data Age: 55 Gender: M Height: 6 ft 1 in Weight: 127.9 kg Last Vital Signs Temp 37.2 C 02/14/21 06:00 Pulse 80 02/14/21 06:00 Resp 18 02/14/21 06:00 BP 151/78 H 02/14/21 06:00 Pulse Ox 98 02/14/21 06:00 Allergies Allergy/AdvReac Type Severity Reaction Status Date / Time codeine Allergy Hives Verified 02/10/21 13:57 Penicillins Allergy Hives Verified 02/10/21 13:57 oxycodone [From Percocet] AdvReac Sweating Verified 02/10/21 13:57 pentazocine [From Talwin] AdvReac Sweating Verified 02/10/21 13:57 propoxyphene AdvReac Sweating Verified 02/10/21 13:57 [From Darvocet-N] Home Medications Medication Instructions Recorded Confirmed Type aspirin [Aspir-81] 81 mg PO DAILY 01/14/20 02/10/21 History atorvastatin 80 mg PO DAILY 01/14/20 02/10/21 History buspirone 5 mg PO TID 01/14/20 02/10/21 History clopidogrel 75 mg PO DAILY 01/14/20 02/10/21 History fluoxetine [Prozac] 20 mg PO DAILY 01/14/20 02/10/21 History metformin 1,000 mg PO BID 01/14/20 02/10/21 History ropinirole 0.5 mg PO HS 01/14/20 02/10/21 History cyanocobalamin (vitamin B-12) 1,000 mcg PO DAILY 01/27/21 02/10/21 History 1,000 mcg tablet insulin aspar prot-insulin aspart 15 unit SUBCUT TID 01/27/21 02/10/21 History 100 unit/mL (70-30) subcutaneous pen insulin glargine 100 unit/mL (3 60 unit SUBCUT DAILY ml 01/27/21 02/10/21 History mL) subcutaneous pen lisinopril 40 mg tablet 40 mg PO DAILY 01/27/21 02/10/21 History nebivolol 2.5 mg tablet 5 mg PO DAILY 01/27/21 02/10/21 History dulaglutide [Trulicity] 3 mg SUBCUT WEEKLY 02/10/21 02/10/21 History nitroglycerin 4 mg SUBLINGUAL PRN PRN 02/10/21 02/10/21 History Laboratory Tests 02/13/21 02/13/21 02/14/21 16:25 20:30 06:14 WBC 9.5 K/mm3 K/mm3 (4.5-10.0) RBC 4.06 M/mm3 L M/mm3 (4.6-6.20) Hgb 11.4 g/dL L g/dL (14.0-18.0) Hct 35.3 % L % (42.0-52.0) MCV 86.9 fl fl (80-100) MCH 28.1 pg pg (26-34) MCHC 32.3 g/dl g/dl (32-36) RDW 12.3 % % (11.5-14.5) Plt Count 248 k/mm3 k/mm3 (150-375) MPV 9.4 fl fl (7.4-10.4) Immature Gran % (Auto) 0.9 % H % (0-0.5) Neut % (Auto) 69.0 % % (45.5-73.1) Lymph % (Auto) 19.6 % % (18.3-44.2) Bailey % (Auto) 7.4 % % (2.6-8.5) Eos % (Auto) 2.6 % % (0-4.4) Baso % (Auto) 0.5 % % (0.2-1.2) Lymph # (Auto) 1.86 K/mm3 K/mm3 (0.9-3.2) Bailey # (Auto) 0.7 K/mm3 H K/mm3 (0.1-0.6) Eos # (Auto) 0.3 K/mm3 K/mm3 (0-0.3) Baso # (Auto) 0.1 K/mm3 K/mm3 (0.0-0.1) Abs Immat Gran (auto) 0.09 K/mm3 H K/mm3 (0.00-0.031) Absolute Neuts (auto) 6.6 K/mm3 K/mm3 (1.3-6.7) Absolute Nucleated RBC 0.0 K/mm3 K/mm3 (0.0-0.012) Nucleated RBC % 0.0 % % (0.0-0.2) Sodium Potassium Chloride Carbon Dioxide Anion Gap BUN Creatinine Estim Creat Clear Calc Estimated GFR Glucose POC Capillary Glucose 152 mg/dl H mg/dl 191 mg/dl H mg/dl (65-105) (65-105) Calcium Vancomycin Trough 02/14/21 02/14/21 02/14/21 06:14 08:18 10:57 WBC RBC Hgb Hct MCV MCH MCHC RDW Plt Count MPV Immature Gran % (Auto) Neut % (Auto) Lymph % (Auto) Bailey % (Auto)
[2021-02-14] MEDS: BUPIVACAINE HCL 0.5% PF 30 ML VIAL INFILTRATE (12:57)
[2021-02-14] MEDS: VANCOMYCIN HCL 1,000 MG VIAL 1000 MG TOPICAL (12:57)
[2021-02-14] MEDS: LIDOCAINE HCL 2% PF INJ 5 ML VIAL 10 ML INFILTRATE (12:57)
[2021-02-14 14:12] LABS: Glucose Point of Care 125 (65-105)
--- NOTE | 2021-02-14 14:25 | P.OP_ITS ---
Procedure Note - Detailed Date of procedure: 02/14/21 Pre-op diagnosis: Diabetic foot infection, right foot Post-op diagnosis: same Procedure performed: 1. Incision and drainage right foot 2. Fourth metatarsal osteotomy right foot Anesthesia: MAC and local Surgeon: Lio Pacheco JR, DPM Estimated blood loss (mL): 5 Drains: No Packing: Yes Pathology: yes (Deep wound culture swab sent for gross and histopathology) Complications: No immediate complications Condition: stable Disposition: floor Findings: Under mild sedation, the patient was brought to the operating room, remained in inpatient bed in supine position. A pneumatic ankle tourniquet was placed about the patient's ankle. Following general anesthesia, I performed a proximal fourth metatarsal Roberts Block. The foot was then scrubbed, prepped, and draped in the usual aseptic manner. An Elevation was used to exsanguinate the patient's foot and pneumatic ankle tourniquet was then inflated. Surgery began in the following manner. Attention was directed to the plantar aspect of the fourth metatarsal head of the foot where two converging semi elliptical incisions were made about the ulceration resecting the majority of the becrotic bone. The incision was approximately 3cm in length. The incision was continued deep down through the subcutaneous tissues using sharp and blunt dissection. All bleeders were cauterized as enrrique haynes. I used a rongeur to resect all remaining infectious martinez tissue leaving only healthy bleeding tissue. No invoment of the fourth metatarsal. The periosteum was noted to be intact. I did take a deep wound culture swab and sent for aerobic and anaerobic culture and sensitivity. No remaining necrotic tissue was noted, no other abscess was noted. The wound only extended to the subcutaneous layer only. I did use pulsed lavage to flush the wound with 3L of sterile saline. Next, I packed the wound with [employer] antibiotics beads mixed with 0.75g of Vancomycin. I did leave the incision site open and packed with 1/2 Iodoform gauze. I made a dorsal incision along the distal metaphyseal diaphyseal junction, I retracted the extensor tendons and made a vertial osteotomy along the metatar wanda, the fourth metatarsal head was noted to float into a better position with the fourth metatarsal head no longer being prominent plantarly. I packed the antibiotic beads dorsally as well. No signs of infection noted dorsally along the fourth metatarsal head. I closed the skin with 4-0 prolene. I dressed with adaptic, 4x4 gauze, Kerlix and ANDRA Wrap. The pneumatic ankle tourniquet was then deflated and a prompt hyperemic response noted to all digits of the affected foot. A surgical shoe was then applied. The patient did very well with the procedure and the anesthesia. The patient was transferred to the recovery room with vital signs stable and vascular status intact to all toes of the affected foot. The patient will be admitted for IV antibiotcs and for an infectious disease consult to help with antibiotic management. The patient will follow the following instructions: 1. Keep the dressing clean, dry, and intact. Use a cast protector bag with showers. 2. The patient should use a surgical shoe for ambulation postoperatively. 3. The patient should be on bedrest with bathroom priviliges and elevate the affected foot when at rest. 4. I, Dr. Pacheco, will change the dressing the day after surgery.
--- NOTE | 2021-02-14 14:34 | PM.IMPN ---
Progress Note: A&P Assessment and Plan (1) Diabetic infection of right foot: Code(s): E11.628 - Type 2 diabetes mellitus with other skin complications; L08.9 - Local infection of the skin and subcutaneous tissue, unspecified Status: Acute Assessment and Plan: PATIENT WILL GO FOR SURGICAL PROCEDURE TODAY BY PODIATRY WOUND CULTURE SIGNIFICANT FOR MRSA GROWTH WILL DISCONTINUE CEFTRIAXONE AND START VANCOMYCIN AWAIT ON ID FOR FURTHER RECOMMENDATIONS FOLLOW PODIATRY RED SUPPORTIVE CARE (2) Diabetes mellitus: Code(s): E11.9 - Type 2 diabetes mellitus without complications Status: Acute Assessment and Plan: CONTINUE ACCU-CHEKS AC AND HS CONTINUE LANTUS CONTINUE INSULIN ASPART CONTINUE TO MONITOR (3) [place] (acute kidney injury): Code(s): N17.9 - Acute kidney failure, unspecified Status: Acute Assessment and Plan: PATIENT BUN AND CREATININE WITHIN NORMAL LIMITS CONTINUE TO MONITOR (4) Coronary artery disease: Code(s): I25.10 - Atherosclerotic heart disease of [place] coronary artery without angina pectoris Status: Acute Assessment and Plan: STABLE CONTINUE PLAVIX CONTINUE NABIVOLOL CONTINUE STATIN (5) Hypertension: Code(s): I10 - Essential (primary) hypertension Status: Acute Assessment and Plan: CONTINUE LISINOPRIL WELL CONTROLLED (6) Obstructive sleep apnea: Onset Date: ~08/2020 Code(s): G47.33 - Obstructive sleep apnea (adult) (pediatric) Status: Acute Assessment and Plan: CPAP AT NIGHTTIME Subjective Date/time seen: 02/14/21 14:34 I FEEL FINE Review of Systems Review of Systems: Narrative: PATIENT DENIES ANY ISSUES AT THE TIME OF MY VISIT HE HAD BEEN NPO AWAITING PROCEDURE TODAY Exam Narrative: Exam Narrative: SITTING BY THE EDGE OF THE BED Const: General: comfortable, no acute distress, well developed, alert and awake Nutritional Appearance: average body habitus Orientation/consciousness: patient oriented x3 HENMT: Head: normal to inspection, normocephalic and atraumatic Ears: hearing grossly normal bilaterally Face and sinus: normal facial exam Eyes: General: appearance normal, both eyes and all related structures Pupils: Equal, round and reactive pupils present EOM: EOMs intact bilaterally Neck: Neck: full ROM, no lymphadenopathy and no JVD Thyroid: thyroid normal Lymphatic: no lymphadenopathy noted Resp: Effort & Inspection: normal respiratory effort and able to speak in complete sentences Auscultation: clear to auscultation bilaterally Cardio: Jugular venous distension: no JVD Rate: regular rate Rhythm: regular rhythm Heart sounds: S1 normal heart sound present and S2 normal heart sound present GI: GI Palp: Yes Soft to palpation and Yes No hepatosplenomegaly present : General: Yes deferred Skin: Rashes: no rashes Wounds: no wounds Neuro: General: patient oriented x3 and CN's II-XI intact bilaterally Cranial nerves: Yes CN's II-XII intact bilaterally and Yes Equal, round and reactive pupils present Cognition (Neuro): normal cognition Speech: normal speech Gait exam (Neuro): Normal gait present Motor exam (neuro): 5/5 motor strength present throughout Extrem: General: other ( RIGHT LOWER EXTREMITY WOUND PLANTAR ASPECT 4TH METATARSAL) Objective Data Vital Signs Vital Signs: Vital Signs - 24 hr 02/13/21 21:55 02/14/21 06:00 02/14/21 14:05 Temperature 98.7 F 98.9 F 97.2 F L Pulse Rate 86 80 82 Respiratory Rate 16 18 10 L Blood Pressure 155/79 H 151/78 H 146/94 H Pulse Oximetry 98 98 99 02/14/21 14:20 Temperature Pulse Rate 80 Respiratory Rate 12 Blood Pressure 166/91 H Pulse Oximetry 96 Intake/Output Intake/Output: Intake & Output 02/11/21 02/12/21 02/13/21 02/14/21 23:59 23:59 23:59 23:59 Intake Total 5670 5360 5090 1700 Output Total 2925 3000 2825 1325 Balance 2745 2360 2265 375 Meds/Results Medications: Act
[2021-02-14] MEDS: lisinopriL 20 MG TABLET 40 MG PO (16:01)
[2021-02-14 16:46] LABS: Glucose Point of Care 129 (65-105)
[2021-02-14] MEDS: metFORMIN HCL 500 MG TABLET 1000 MG PO (17:01)
[2021-02-14 17:14] LABS: Basophils Absolute Auto 0.1 K/mm3 (0.0-0.1); Basophils Percent Auto 0.6 % (0.2-1.2); Eosinophils Absolute Auto 0.3 K/mm3 (0-0.3); Eosinophils Percent Auto 2.8 % (0-4.4); Hematocrit 39.8 % (42.0-52.0); Hemoglobin 12.7 g/dL (14.0-18.0); Immature Granulocyte Absolute 0.09 K/mm3 (0.00-0.031); Immature Granulocyte Percent A 0.9 % (0-0.5); Lymphocytes Absolute Auto 1.93 K/mm3 (0.9-3.2); Lymphocytes Percent Auto 19.9 % (18.3-44.2); Mean Corpuscular HGB Conc 31.9 g/dl (32-36); Mean Corpuscular Hemoglobin 28.1 pg (26-34); Mean Corpuscular Volume 88.1 fl (80-100); Mean Platelet Volume 9.3 fl (7.4-10.4); Monocytes Absolute Auto 0.7 K/mm3 (0.1-0.6); Neutrophils Absolute Auto 6.7 K/mm3 (1.3-6.7); Neutrophils Percent Auto 68.8 % (45.5-73.1); Platelet Count Result 286 k/mm3 (150-375); Red Blood Count 4.52 M/mm3 (4.6-6.20); Red Cell Distribution Width 12.3 % (11.5-14.5); White Blood Count 9.7 K/mm3 (4.5-10.0)
[2021-02-14 17:35] LABS: CRP 5.7 mg/dL (<1.0)
[2021-02-14 17:57] LABS: Erythrocyte Sedimentation Rate 33 mm/hr (0-20)
[2021-02-14] MEDS: rOPINIRole HCL 0.5 MG TABLET PO (20:55)
[2021-02-14 21:00] LABS: Glucose Point of Care 168 (65-105)
[2021-02-15] MEDS: LACTATED RINGERS 1,000 ML 120 ML IV CONT (02:44)
[2021-02-15 04:00] VITALS: BP 155/79; PULSE 84; RESP 18; TEMP 37.3; O2SAT 96
[2021-02-15 06:33] LABS: Hematocrit 35.5 % (42.0-52.0); Hemoglobin 11.6 g/dL (14.0-18.0); Mean Corpuscular HGB Conc 32.7 g/dl (32-36); Mean Corpuscular Hemoglobin 28.5 pg (26-34); Mean Corpuscular Volume 87.2 fl (80-100); Mean Platelet Volume 9.2 fl (7.4-10.4); Platelet Count Result 264 k/mm3 (150-375); Red Blood Count 4.07 M/mm3 (4.6-6.20); Red Cell Distribution Width 12.2 % (11.5-14.5); White Blood Count 9.5 K/mm3 (4.5-10.0)
[2021-02-15 06:47] LABS: Anion Gap 3 mmol/L (8-16); Blood Urea Nitrogen 6 mg/dL (9-20); Calcium 8.2 mg/dL (8.4-10.2); Carbon Dioxide 30 mmol/L (22-30); Chloride 103 mmol/L (98-107); Estimated CRCL calculation 144 ml/min; Estimated Glomerular Filt Rate > 60; Glucose 142 mg/dL (75-110); Potassium 3.7 mmol/L (3.4-5.0); Sodium 136 mmol/L (137-145)
[2021-02-15 08:00] VITALS: BP 147/89; PULSE 85; RESP 18; TEMP 37.2; O2SAT 98
[2021-02-15] MEDS: INSULIN GLARGINE (*BKC) 100 UNITS/ML 60 UNITS SUB-Q (08:03)
[2021-02-15 08:08] LABS: Glucose Point of Care 163 (65-105)
[2021-02-15 08:09] VITALS: PULSE 80
[2021-02-15] MEDS: metFORMIN HCL 500 MG TABLET 1000 MG PO (08:09)
[2021-02-15] MEDS: NEBIVOLOL HCL 5 MG TABLET PO (08:09)
[2021-02-15] MEDS: ATORVASTATIN 40 MG TABLET 80 MG PO (08:10)
[2021-02-15] MEDS: ASPIRIN 81 MG ENTERIC TABLET PO (08:10)
[2021-02-15] MEDS: SILVERGEL (ELTA) 45 ML 1 APPLIC TOPICAL (08:11)
[2021-02-15] MEDS: busPIRone HCL 5 MG TABLET PO ×2 (08:11→12:23)
[2021-02-15] MEDS: lisinopriL 20 MG TABLET 40 MG PO (08:11)
[2021-02-15] MEDS: CYANOCOBALAMIN 1,000 MCG TABLET 1000 MCG PO (08:11)
[2021-02-15] MEDS: FLUoxetine HCL 20 MG CAPSULE PO (08:11)
--- NOTE | 2021-02-15 10:18 | WPDPN ---
Progress Note: A&P Additional Plan --1 day s/p elevational osteotomy of a prominent 4th metatarsal head right foot also 1 day s/p I&D with Vancomycin PMMA antibiotic packing of wound - Doing well clinically with resolving SOI, intrap op findings no bone involvement only involved infectious soft tissue was excised. No F/C/N/V/SOB/CP. - I changed dressing and packed with 1/4 packing gauze and DSD, this will be continued daily at home. Home health will be ordered. - The patient will be minimally ambulatory with surgical shoe. - Leukocytosis resolving- ID on case, will await final antibiotic recommendations prior to discharge, appreciate help with case. -The patient will follow up 3 days after discharge in my office for continued evaluation. Exam Extrem: Ankle/foot/toe images: 1. Incision to the dorsum of the right foot is well coapted. No erythema noted. 2. Plantar wound, (s/p I&D) left open to heal secondarily. After packing removal the patient did have antibiotic beads visible. Near complete resolution of the edema and erythema that was present preoperatively. Objective Data Vital Signs Vital Signs: Vital Signs - 24 hr 02/14/21 14:05 02/14/21 14:20 02/14/21 14:35 Temperature 36.2 C L Pulse Rate 82 80 82 Respiratory Rate 10 L 12 12 Blood Pressure 146/94 H 166/91 H 150/95 H Pulse Oximetry 99 96 96 02/14/21 14:50 02/14/21 15:05 02/14/21 15:35 Temperature 36.6 C Pulse Rate 80 80 79 Respiratory Rate 12 12 18 Blood Pressure 150/97 H 167/96 H 163/92 H Pulse Oximetry 96 97 98 02/14/21 15:50 02/14/21 16:20 02/14/21 17:20 Temperature 36.6 C 36.6 C 36.6 C Pulse Rate 78 78 89 Respiratory Rate 18 18 18 Blood Pressure 161/94 H 160/83 H 138/70 Pulse Oximetry 98 99 100 02/14/21 20:00 02/14/21 20:03 02/14/21 23:36 Temperature 37.4 C 37.7 C H Pulse Rate 83 83 87 Respiratory Rate 18 18 18 Blood Pressure 157/89 H 143/76 H Pulse Oximetry 100 100 96 02/15/21 04:00 02/15/21 08:00 02/15/21 08:09 Temperature 37.3 C 37.2 C Pulse Rate 84 85 80 Respiratory Rate 18 18 Blood Pressure 155/79 H 147/89 H Pulse Oximetry 96 98 Intake/Output Intake/Output: Intake & Output 02/12/21 02/13/21 02/14/21 02/15/21 23:59 23:59 23:59 23:59 Intake Total 5360 5090 4340 2160 Output Total 3000 2825 3025 1200 Balance 2360 2265 1315 960 Meds/Results Medications: Active Medications Generic Name Dose Route Start Last Admin Trade Name Freq PRN Reason Stop Dose Admin Aspirin 81 mg 02/12/21 09:00 02/15/21 08:10 Aspirin 81 Mg Enteric Tablet PO 81 mg DAILY LOU Administration Atorvastatin Calcium 80 mg 02/12/21 09:00 02/15/21 08:10 Atorvastatin 40 Mg Tablet PO 80 mg DAILY LOU Administration Buspirone HCl 5 mg 02/11/21 13:00 02/15/21 08:11 Buspirone Hcl 5 Mg Tablet PO 5 mg TID LOU Administration Cyanocobalamin 1,000 mcg 02/12/21 09:00 02/15/21 08:11 Cyanocobalamin 1,000 Mcg Tablet PO 1,000 mcg DAILY LOU Administration Dextrose 12.5 gm 02/10/21 16:32 Dextrose 50% 25 Gm/50 Ml Syringe IV PUSH PRN PRN Hypoglycemia Protocol Fluoxetine HCl 20 mg 02/11/21 11:00 02/15/21 08:11 Fluoxetine Hcl 20 Mg Capsule PO 20 mg DAILY LOU Administration Glucagon 1 mg 02/10/21 16:32 Glucagon For Inj 1 Mg Vial IM PRN PRN Hypoglycemia Protocol Glucose 15 gm 02/10/21 16:32 Glucose Oral Gel 15 Gm Of Glucse In 37.5 Gm Tube PO PRN PRN Hypoglycemia Protocol Lactated Ringer's 1,000 mls @ 125 mls/hr 02/10/21 12:05 02/15/21 02:44 Lr - Lactated Ringers Iv IV CONT 120 mls/hr .Q8H LOU Administration Dextrose 1,000 mls @ 100 mls/hr 02/10/21 16:32 Dextrose 5% 1,000 Ml IVPB PRN PRN Hypoglycemia Protocol Vancomycin HCl 2,000 mg in 500 mls @ 250 mls/hr 02/12/21 12:00 02/15/21 00:35 Vancomycin 2,000 Mg/D5w 500 Ml IVPB Infused Q12H LOU Infusion Acetaminophen 650 mg in 65 mls @ 260 mls/hr 01/30
[2021-02-15 12:00] VITALS: BP 131/80; PULSE 82; RESP 18; TEMP 36.8; O2SAT 95
[2021-02-15 12:19] LABS: Glucose Point of Care 195 (65-105)
--- NOTE | 2021-02-15 13:24 | PM.IMPN ---
Progress Note: A&P Assessment and Plan (1) Diabetic infection of right foot: Code(s): E11.628 - Type 2 diabetes mellitus with other skin complications; L08.9 - Local infection of the skin and subcutaneous tissue, unspecified Status: Acute Assessment and Plan: the patient is status post ostectomy by Podiatry cultures growing MRSA patient is on vancomycin follow-up all recs awaiting ID final recommendation of antibiotic choice going home (2) Diabetes mellitus: Code(s): E11.9 - Type 2 diabetes mellitus without complications Status: Acute Assessment and Plan: Accu-Cheks AC and HS continue Lantus continue aspart insulin sliding scale as needed (3) [place] (acute kidney injury): Code(s): N17.9 - Acute kidney failure, unspecified Status: Acute Assessment and Plan: resolved (4) Coronary artery disease: Code(s): I25.10 - Atherosclerotic heart disease of [place] coronary artery without angina pectoris Status: Acute Assessment and Plan: stable continue statin continue Plavix continue lisinopr (5) Hypertension: Code(s): I10 - Essential (primary) hypertension Status: Acute Assessment and Plan: well controlled continue to monitor (6) Obstructive sleep apnea: Onset Date: ~08/2020 Code(s): G47.33 - Obstructive sleep apnea (adult) (pediatric) Status: Acute Assessment and Plan: CPAP at nighttime Subjective Date/time seen: 02/15/21 13:24 I feel well Review of Systems Review of Systems: Narrative: patient is status post surgical procedure or by Podiatry day 1 he denies any issues at the present Exam Narrative: Exam Narrative: laying in bed in no acute distress Const: General: comfortable, no acute distress, alert, awake and ill appearing chronically Nutritional Appearance: average body habitus and overweight Orientation/consciousness: patient oriented x3 HENMT: Head: normal to inspection, normocephalic and atraumatic Ears: hearing grossly normal bilaterally Face and sinus: normal facial exam Eyes: General: appearance normal, both eyes and all related structures Pupils: Equal, round and reactive pupils present EOM: EOMs intact bilaterally Neck: Neck: full ROM, no lymphadenopathy and no JVD Thyroid: thyroid normal Lymphatic: no lymphadenopathy noted Resp: Effort & Inspection: normal respiratory effort and able to speak in complete sentences Auscultation: clear to auscultation bilaterally Cardio: Jugular venous distension: no JVD Rate: regular rate Rhythm: regular rhythm Heart sounds: S1 normal heart sound present and S2 normal heart sound present GI: GI Palp: Yes Soft to palpation and Yes No hepatosplenomegaly present : General: Yes deferred Skin: Rashes: no rashes Wounds: no wounds Neuro: General: patient oriented x3 and CN's II-XI intact bilaterally Cranial nerves: Yes CN's II-XII intact bilaterally and Yes Equal, round and reactive pupils present Cognition (Neuro): normal cognition Speech: normal speech Gait exam (Neuro): Normal gait present Motor exam (neuro): 5/5 motor strength present throughout Extrem: General: other ( right foot wound dressing in place) Objective Data Vital Signs Vital Signs: Vital Signs - 24 hr 02/14/21 14:05 02/14/21 14:20 02/14/21 14:35 Temperature 97.2 F L Pulse Rate 82 80 82 Respiratory Rate 10 L 12 12 Blood Pressure 146/94 H 166/91 H 150/95 H Pulse Oximetry 99 96 96 02/14/21 14:50 02/14/21 15:05 02/14/21 15:35 Temperature 97.9 F Pulse Rate 80 80 79 Respiratory Rate 12 12 18 Blood Pressure 150/97 H 167/96 H 163/92 H Pulse Oximetry 96 97 98 02/14/21 15:50 02/14/21 16:20 02/14/21 17:20 Temperature 97.9 F 97.8 F 97.9 F Pulse Rate 78 78 89 Respiratory Rate 18 18 18 Blood Pressure 161/94 H 160/83 H 138/70 Pulse Oximetry 98 99 100 02/14/21 20:00 02/14/21 20:03 02/14/21 23:36 Temperature 99.3 F 99.9 F H Pulse Ra
--- NOTE | 2021-02-15 14:24 | PM.DS ---
DS: Admitting Diagnosis Admitting Diagnosis Admitting Diagnosis: (1) Diabetic infection of right foot: (2) Diabetes mellitus: (3) Coronary artery disease: (4) Hypertension: (5) Obstructive sleep apnea: (6) [place] (acute kidney injury): DS: Discharge Diagnosis Discharge Diagnosis (1) Diabetic infection of right foot: Code(s): E11.628 - Type 2 diabetes mellitus with other skin complications; L08.9 - Local infection of the skin and subcutaneous tissue, unspecified Status: Acute Assessment and Plan: patient is status post ostectomy of the 4th metatarsal head by podiatry will follow-up in outpatient setting (2) Coronary artery disease: Code(s): I25.10 - Atherosclerotic heart disease of [place] coronary artery without angina pectoris Status: Acute Assessment and Plan: stable continue aspirin continue statin continue Plavix continue lisinopril continue nebivolol (3) Hypertension: Code(s): I10 - Essential (primary) hypertension Status: Acute Assessment and Plan: stable continue to monitor (4) Obstructive sleep apnea: Onset Date: ~08/2020 Code(s): G47.33 - Obstructive sleep apnea (adult) (pediatric) Status: Acute Assessment and Plan: continue CPAP (5) Diabetes mellitus: Code(s): E11.9 - Type 2 diabetes mellitus without complications Status: Acute Assessment and Plan: Accu-Cheks AC and HS insulin glargine insulin aspart (6) [place] (acute kidney injury): Code(s): N17.9 - Acute kidney failure, unspecified Status: Acute Assessment and Plan: resolved DS: Summary Hospital Course Reason for hospitalization: nonhealing right foot ulcer Hospital Course: this is the 55-year-old male with past medical history significant for diabetes mellitus to use ischemic cardiomyopathy hypertension restless leg seems bilateral diabetic foot patient presented to the emergency room due to nonhealing right foot ulcer with mild also roscoe discharge no nausea vomiting in chills poor appetite his complex case manager asked him to come to the emergency room. patient was admitted to general medical floor and he underwent a right 4th metatarsal ostectomy. consults obtained: Id, Podiatry procedure: 4Th metatarsal ostectomy Status at Discharge Cognitive/behavioral status at discharge: AAX3 Functional status at discharge: independent ambulation Time Spent with Patient Time attestation: Total time spent providing and/or coordinating discharge services: Exam Narrative: Exam Narrative: patient is laying in bed in no acute distress Const: General: comfortable, no acute distress, well developed, alert, awake and ill appearing chronically Nutritional Appearance: overweight Orientation/consciousness: patient oriented x3 HENMT: Head: normal to inspection, normocephalic and atraumatic Ears: hearing grossly normal bilaterally Face and sinus: normal facial exam Eyes: General: appearance normal, both eyes and all related structures Pupils: Equal, round and reactive pupils present EOM: EOMs intact bilaterally Neck: Neck: full ROM, no lymphadenopathy and no JVD Thyroid: thyroid normal Lymphatic: no lymphadenopathy noted Resp: Effort & Inspection: normal respiratory effort and able to speak in complete sentences Auscultation: clear to auscultation bilaterally Cardio: Jugular venous distension: no JVD Rate: regular rate Rhythm: regular rhythm Heart sounds: S1 normal heart sound present and S2 normal heart sound present GI: GI Palp: Yes Soft to palpation and Yes No hepatosplenomegaly present : General: Yes deferred Skin: Rashes: no rashes Wounds: no wounds Neuro: General: patient oriented x3 and CN's II-XI intact bilaterally Cranial nerves: Yes CN's II-XII intact bilaterally and Yes Equal, round and reactive pupils present Cognition (Neuro): normal cognition Speech: normal speech
== END 2021-02-15 16:11 | disposition home health service (06) | DRG 629 ==
LOC: ANHED 11:39 → ANH3MEDSUR 12:49
PROVIDERS: Podiatrist Foot & Ankle Surgery; Admitting Provider Internal Medicine; Emergency Provider Emergency Medicine; PCP Family Medicine; Visit Provider Internal Medicine
PROC: 0QBN0ZZ Excision of Right Metatarsal, Open Approach (ICD-10-PCS; principal; 2021-02-14 13:00)
PROC: 0QBN0ZZ Excision of Right Metatarsal, Open Approach (ICD-10-PCS; CPT 28750; 2021-02-14 13:00)
DX: E11.621 Type 2 diabetes mellitus with foot ulcer (principal); L97.518 Non-pressure chronic ulcer of other part of right foot with other specified severity; B95.62 Methicillin resistant Staphylococcus aureus infection as the cause of diseases classified elsewhere; E11.628 Type 2 diabetes mellitus with other skin complications; L08.9 Local infection of the skin and subcutaneous tissue, unspecified; I25.10 Atherosclerotic heart disease of native coronary artery without angina pectoris; I10 Essential (primary) hypertension; E11.42 Type 2 diabetes mellitus with diabetic polyneuropathy; E11.65 Type 2 diabetes mellitus with hyperglycemia; G47.33 Obstructive sleep apnea (adult) (pediatric); N17.9 Acute kidney failure, unspecified; I25.5 Ischemic cardiomyopathy; M19.90 Unspecified osteoarthritis, unspecified site; E78.5 Hyperlipidemia, unspecified; E66.9 Obesity, unspecified; Z96.651 Presence of right artificial knee joint; Z68.37 Body mass index [BMI] 37.0-37.9, adult; Z85.46 Personal history of malignant neoplasm of prostate; Z95.5 Presence of coronary angioplasty implant and graft; Z87.891 Personal history of nicotine dependence; Z90.49 Acquired absence of other specified parts of digestive tract
CPT/HCPCS: 36415; 73630; 73718; 80048; 80202; 82565; 82948; 83605; 85025; 85027; 85652; 86140; 87040; 87070; 87075; 87147; 87186; 87205; 93005; 96361; 96365; 96366; 96367; 99285; A9270; C1713; G0378; J0131; J0696; J1815; J2250; J3010; J3370; J7030; J7120

== ENCOUNTER 2021-06-17 03:00 | Day surgery (SDC) | payer MEDICARE, MEDICAID, SELFPAY ==
[2021-06-16 14:00] VITALS: BMI 38.2
--- NOTE | ~2021-06-17 | XR_ITS ---
XR surgery orthopedic 06/17/2021 08:11 Indication: Left foot surgery Procedure: 2 fluoroscopic views of the left foot. 5 seconds of fluoroscopy. Comparison: No prior studies for comparison. Findings: There are osteotomy changes of the fourth and fifth metatarsals. Lisfranc joint grossly int act. Resolution limits evaluation of the soft tissues. Please refer to procedural report for details. Impression: 1: Fluoroscopy provided for left foot surgery. Please correlate with surgical procedure note for deta ils. Reviewed, dictated and finalized at location A. Impression: 1: Fluoroscopy provided for left foot surgery. Please correlate with surgical p rocedure note for details.
[2021-06-17 05:57] VITALS: BP 133/77; PULSE 93; RESP 18; TEMP 36; O2SAT 99
[2021-06-17] MEDS: LACTATED RINGERS 1,000 ML 30 ML IV CONT (06:20)
[2021-06-17 06:29] LABS: Glucose Point of Care 227 mg/dl (65-105)
[2021-06-17 06:45] LABS: Anion Gap 10 mmol/L (8-16); Blood Urea Nitrogen 19 mg/dL (9-20); Calcium 9.4 mg/dL (8.4-10.2); Carbon Dioxide 23 mmol/L (22-30); Chloride 101 mmol/L (98-107); Estimated CRCL calculation 144 ml/min; Estimated Glomerular Filt Rate > 60; Glucose 221 mg/dL (65-110); Potassium 4.3 mmol/L (3.4-5.0); Sodium 134 mmol/L (137-145)
--- NOTE | 2021-06-17 07:00 | WPDANESEPPF ---
Anes - Initial Pre Proc Eval Procedure: Operation Date: 06/17/21 07:30 Proposed Procedures p Fourth Metatarsal Osteotomy Left Foot - Lio Pacheco JR, MD Date/Time: 06/17/21 07:00 Surgeon: Lio Pacheco JR, MD Pre Op Diagnosis: diabetic ulcer Left foot Patient Data Age: 55 Gender: M Height: 1.85 m Weight: 127.1 kg Last Vital Signs Temp 96.8 F L 06/17/21 05:57 Pulse 93 06/17/21 05:57 Resp 18 06/17/21 05:57 BP 133/77 06/17/21 05:57 Pulse Ox 99 06/17/21 05:57 Allergies Allergy/AdvReac Type Severity Reaction Status Date / Time codeine Allergy Hives Verified 06/17/21 05:59 Penicillins Allergy Hives Verified 06/17/21 05:59 oxycodone [From Percocet] AdvReac Sweating Verified 06/17/21 05:59 pentazocine [From Talwin] AdvReac Sweating Verified 06/17/21 05:59 propoxyphene AdvReac Sweating Verified 06/17/21 05:59 [From Darvocet-N] Home Medications Medication Instructions Recorded Confirmed Type aspirin [Aspir-81] 81 mg PO DAILY 01/14/20 06/17/21 History atorvastatin 80 mg PO DAILY 01/14/20 06/17/21 History clopidogrel 75 mg PO DAILY 01/14/20 06/17/21 History metformin 1,000 mg PO BID 01/14/20 06/17/21 History ropinirole 0.5 mg PO HS 01/14/20 06/17/21 History cyanocobalamin (vitamin B-12) 1,000 mcg PO DAILY 01/27/21 06/17/21 History 1,000 mcg tablet insulin aspar prot-insulin aspart 15 unit SUBCUT TID 01/27/21 06/17/21 History 100 unit/mL (70-30) subcutaneous pen insulin glargine 100 unit/mL (3 60 unit SUBCUT DAILY ml 01/27/21 06/17/21 History mL) subcutaneous pen lisinopril 40 mg tablet 40 mg PO DAILY 01/27/21 06/17/21 History nebivolol 2.5 mg tablet 5 mg PO DAILY 01/27/21 06/17/21 History Trulicity 4 mg SUBCUT WEEKLY 02/10/21 06/17/21 History nitroglycerin 4 mg SUBLINGUAL PRN PRN 02/10/21 06/17/21 History Laboratory Tests 06/17/21 06/17/21 06:13 06:21 Sodium 134 mmol/L L mmol/L (137-145) Potassium 4.3 mmol/L mmol/L (3.4-5.0) Chloride 101 mmol/L mmol/L (98-107) Carbon Dioxide 23 mmol/L mmol/L (22-30) Anion Gap 10 mmol/L mmol/L (8-16) BUN 19 mg/dL D mg/dL (9-20) Creatinine 0.70 mg/dL mg/dL (0.7-1.3) Estim Creat Clear Calc 144 ml/min ml/min Estimated GFR > 60 (59 - ) Glucose 221 mg/dL H mg/dL (65-110) POC Capillary Glucose 227 mg/dl H mg/dl (65-105) Calcium 9.4 mg/dL mg/dL (8.4-10.2) Patient hx anesthesia problems: none Family hx anesthesia problems: none PMFSH Past Medical History Medical History Arthritis Coronary artery disease Stent placed EMRE prox LAD02/15/2018 outside hospital Diabetes mellitus Hyperlipidemia Hypertension Prostate cancer Surgical History Surgical History History of back surgery History of carpal tunnel surgery History of cholecystectomy History of foot surgery bilateral History of right knee joint replacement History of rotator cuff surgery Family History Family History Father Heart attack Hypertension Mother Heart attack Diabetes mellitus Hyperchloremia Hypertension Sibling Hypertension Diabetes mellitus Social History Social History Social History: Smoked for 1 year in his 20's. Smoking packs per day: 2 Smoking cigarettes per day: 40.0 Years smoked: 1 Smoking pack-years: 2.00 Smoking status: Former smoker Tobacco type: cigarettes Smoking end date: 11/01/89 Alcohol intake: never Substance use: never Living arrangements: with family Gender identity (if verbalized by the patient): Male Spiritual care concerns: No Anes - Eval Final PreProcedure Day of Procedure 06/17/21 07:00 Patient weight: obese Heart: regular rate and rhythm Lungs: clear t
--- NOTE | 2021-06-17 07:38 | WPDHPUPDATE1 ---
History and Physical Update Update Date/Time: 06/17/21 07:38 History and Physical has been reviewed, including an updated exam of the patient. There are NO changes in the patient's condition. Risks, benefits, and alternatives have been discussed and questions answered. Patient agrees to proceed with procedure.
[2021-06-17] MEDS: CLINDAMYCIN 900 MG/D5W 50 ML 900 MG/50 ML PIGGYBACK 50 MG IVPB (07:44)
--- NOTE | 2021-06-17 08:09 | W.PM.PROC2 ---
Procedure Note - Detailed Date of Procedure 06/17/21 Pre-op Diagnosis diabetic ulcer Left foot Post-op Diagnosis same Procedure Performed Fourth metatarsal osteotomy left foot Surgeon Lio Pacheco JR, DPM Anesthesia MAC and local Indications Chronic ulceration fourth metatarsal left foot Description of Procedure Under mild sedation, the patient was brought to the operating room, placed on the operating table in the supine position. A pneumatic ankle tourniquet was placed about the patient's left ankle. Following monitored anesthesia care I infiltrated 10cc's of 2% Lidocaine plain along the base of the fourth metatarsal.Next, the foot was then scrubbed, prepped, and draped in the usual aseptic manner. An Esmarch bandage was then used to examine the patient's left foot and pneumatic ankle tourniquet was then inflated. Surgery began in the following manner. Attention was directed to the dorsal aspect of the fourth metatarsal head of the left foot where a 2 cm incision was made just proximal to the neck of the fourth metatarsal. The incision was continued deep down through the subcutaneus tissues using sharp and blunt dissection. All bleeders were cauterized as necessary. A full-length periosteal incision was made overlying the distal metaphyseal dyaphyseal junction of the fourth metatarsal. Next, a sagittal bone saw was used to make an osteotomy just proximal to the neck of the metatarsal. After this osteotomy was completed, the head of the fourth metatarsal was noted to float into a more corrected dorsal position. Fluoroscopy was used to make sure that the correct metatasal was properly cut. The wound site was then flushed with copious amounts of sterile saline. Next, the periosteum was reapproximated with 3-0 Vicryl. Next, the skin was reapproximated and coapted utilizing 4-0 Monocryl in running subcuticular suture fashion technique. Upon completion of the procedure, the incision was dressed with Steri-Strips, Adaptic, 4 x 4's, Kerlix, and Coban. The pneumatic ankle tourniquet was then deflated and a prompt hyperemic response noted to all digits of the left foot. A surgical shoe was then applied. The patient did very well with the procedure and the anesthesia. He was transferred to the recovery room with vital signs stable and vascular status intact to all toes of the left foot. Following a period of postoperative monitoring, the patient will be discharged home on the following written and oral postoperative instructions: 1. Keep the dressing clean, dry, and intact. Use a cast protector bag with showers. 2. The patient to be protected weight bearing with surgical shoe. 3. The patient should ice and elevate the left foot when at rest. 4. The patient to contact Dr. Pacheco for all postop care and if any problems arise. 5. Take Tylenol 500mg as needed for pain every 6 hours. Estimated Blood Loss 1 Drains No Packing No Pathology none sent Complications No immediate complications Condition stable Disposition same day
[2021-06-17 08:17] VITALS: BP 152/87; PULSE 92; RESP 16; O2SAT 94
[2021-06-17] MEDS: LIDOCAINE HCL 2% PF INJ 5 ML VIAL 20 ML INFILTRATE (08:22)
[2021-06-17 08:47] VITALS: BP 147/90; PULSE 90; RESP 16
[2021-06-17 09:17] VITALS: BP 146/86; PULSE 89; RESP 16
== END 2021-06-17 09:30 | disposition home or self-care (01) ==
PROVIDERS: Anesthesiology; PCP Family Medicine; Visit Provider Podiatrist Foot & Ankle Surgery
PROC: (CPT 28750; principal; 2021-06-17 07:30)
DX: E11.621 Type 2 diabetes mellitus with foot ulcer (principal); L97.529 Non-pressure chronic ulcer of other part of left foot with unspecified severity; I25.10 Atherosclerotic heart disease of native coronary artery without angina pectoris; I10 Essential (primary) hypertension; E78.5 Hyperlipidemia, unspecified; Z85.46 Personal history of malignant neoplasm of prostate; Z95.5 Presence of coronary angioplasty implant and graft; Z79.02 Long term (current) use of antithrombotics/antiplatelets; Z79.4 Long term (current) use of insulin; Z79.82 Long term (current) use of aspirin; Z87.891 Personal history of nicotine dependence; E66.9 Obesity, unspecified; Z68.37 Body mass index [BMI] 37.0-37.9, adult
CPT/HCPCS: 28308; 36415; 80048; 82948; C9290; J1170; J2250; J2405; J2704; J3010; J7120